=== PATIENT | male | born 1960 | race Caucasian/White ===

== ENCOUNTER 2019-06-22 07:56 | Day surgery (SDC) | payer OTHER ==
[~2019-06-22] VITALS: Ht 177.8 cm; Wt 104.5 kg
[2019-06-22] MEDS ORDERED: fentaNYL/PF 50MCG/1 ML 2ML syringe ONE (08:07)
[2019-06-22] MEDS ORDERED: LOSA50TA64 PO (08:07)
[2019-06-22] MEDS ORDERED: MIDAZolam 5mg/5ml vial ONE (08:07)
[2019-06-22 08:10] VITALS: BP 157/87
[2019-06-22 09:52] VITALS: BP 146/85
[2019-06-22 10:02] VITALS: BP 143/78
[2019-06-22 10:12] VITALS: BP 137/86
== END 2019-06-22 10:35 | disposition home or self-care (01) ==
LOC: GI LAB 07:56
PROVIDERS: ATTEND Internal Medicine Gastroenterology
DX: Z12.11 Encounter for screening for malignant neoplasm of colon (principal); D12.5 Benign neoplasm of sigmoid colon; K63.5 Polyp of colon; K62.1 Rectal polyp; K57.30 Diverticulosis of large intestine without perforation or abscess without bleeding; K64.8 Other hemorrhoids
CPT/HCPCS: 45380; 45385; 99152; 99153; C1773; J2250; J3010; J7040; A4620

== ENCOUNTER 2019-10-15 08:33 | Outpatient (CLI) | payer OTHER ==
[~2019-10-15 08:33] MED LIST: LOSA50TA64 PO
[2019-10-15 09:10] LABS: BASOPHILS # (AUTO) 0.1 X10'3 (0-0.2); BASOPHILS % (AUTO) 1.1 % (0-1); EOSINOPHILS # (AUTO) 0.2 X10'3 (0-0.9); EOSINOPHILS % (AUTO) 3.1 % (0-6); HEMATOCRIT 45.5 % (42.0-52.0); HEMOGLOBIN 15.4 g/dl (14.0-17.9); LYMPHOCYTES # (AUTO) 2.2 X10'3 (1.1-4.8); LYMPHOCYTES % (AUTO) 31.3 % (21-51); MEAN CORPUSCULAR HEMOGLOBIN 30.6 PG (27.0-31.0); MEAN CORPUSCULAR HGB CONC 33.9 g/dL (33.0-36.5); MEAN CORPUSCULAR VOLUME 90.2 FL (78-98); MEAN PLATELET VOLUME 7.8 FL (7.4-10.4); MONOCYTES # (AUTO) 0.8 X10'3 (0-0.9); MONOCYTES % (AUTO) 11.5 % (2-12); NEUTROPHILS # (AUTO) 3.8 X10'3 (1.8-7.7); PLATELET COUNT 276 X10'3 (140-440); RED BLOOD COUNT 5.05 X10'6 (4.70-6.10); RED CELL DISTRIBUTION WIDTH 14.4 % (11.5-14.5); WHITE BLOOD COUNT 7.2 X10'3 (4.5-11.0)
[2019-10-15 09:37] LABS: ALANINE AMINOTRANSFERASE 29 U/L (12-78); ALBUMIN 3.9 G/DL (3.4-5.0); ALBUMIN/GLOBULIN RATIO 1.1 (1.1-1.5); ALKALINE PHOSPHATASE 56 IU/L (46-116); ANION GAP 9 (8-16); ASPARTATE AMINO TRANSFERASE 23 U/L (10-37); BILIRUBIN,TOTAL 0.3 MG/DL (0.1-1.0); BLOOD UREA NITROGEN 15 MG/DL (7-18); CALCIUM 8.7 MG/DL (8.5-10.1); CHLORIDE 106 MMOL/L (99-107); CREATININE 0.75 MG/DL (0.60-1.10); GLUCOSE 97 MG/DL (70-104); POTASSIUM 4.5 MMOL/L (3.5-5.1); SODIUM 139 MMOL/L (135-145); TOTAL CARBON DIOXIDE 23.7 MMOL/L (24-32); TOTAL PROTEIN 7.5 G/DL (6.4-8.2); eGFR > 90 ML/MIN
== END 2019-10-15 23:59 | disposition home or self-care (01) ==
LOC: LAB 08:33
PROVIDERS: ATTEND Family Medicine
DX: Z00.00 Encounter for general adult medical examination without abnormal findings (principal)
CPT/HCPCS: 36415; 80053; 85025

== ENCOUNTER 2019-10-16 16:01 | Outpatient (CLI) | payer OTHER ==
[2019-10-16] MEDS ORDERED: iohexol 300mg/ml 100ml inj. ONE (16:22)
== END 2019-10-16 23:59 | disposition home or self-care (01) ==
LOC: 64 CT 16:01
PROVIDERS: ATTEND Family Medicine
DX: N20.0 Calculus of kidney (principal); K40.90 Unilateral inguinal hernia, without obstruction or gangrene, not specified as recurrent; K57.30 Diverticulosis of large intestine without perforation or abscess without bleeding; N40.0 Benign prostatic hyperplasia without lower urinary tract symptoms; R31.9 Hematuria, unspecified
CPT/HCPCS: 74177; Q9967

== ENCOUNTER 2019-11-10 09:54 | Day surgery (SDC) | payer OTHER ==
[2019-11-09 10:38] LABS: BASOPHILS # (AUTO) 0.1 X10'3 (0-0.2); EOSINOPHILS # (AUTO) 0.1 X10'3 (0-0.9); EOSINOPHILS % (AUTO) 1.1 % (0-6); LYMPHOCYTES # (AUTO) 1.5 X10'3 (1.1-4.8); LYMPHOCYTES % (AUTO) 18.9 % (21-51); MEAN CORPUSCULAR HEMOGLOBIN 30.4 PG (27.0-31.0); MEAN CORPUSCULAR HGB CONC 33.9 g/dL (33.0-36.5); MEAN CORPUSCULAR VOLUME 89.6 FL (78-98); MEAN PLATELET VOLUME 8.1 FL (7.4-10.4); MONOCYTES # (AUTO) 0.8 X10'3 (0-0.9); NEUTROPHILS # (AUTO) 5.7 X10'3 (1.8-7.7); PRE OP HEMATOCRIT 46.8 % (42.0-52.0); PRE OP HEMOGLOBIN 15.9 g/dL (14.0-17.9); PRE OP PLATELET COUNT 247 X10'3 (140-440); RED BLOOD COUNT 5.22 X10'6 (4.70-6.10)
[2019-11-09 11:08] LABS: ALBUMIN 4.2 G/DL (3.4-5.0); ALBUMIN/GLOBULIN RATIO 1.1 (1.1-1.5); ALKALINE PHOSPHATASE 50 IU/L (46-116); BLOOD UREA NITROGEN 11 MG/DL (7-18); BUN/CREATININE RATIO 15.1 (5.4-32.0); CHLORIDE 104 MMOL/L (99-107); CREATININE 0.73 MG/DL (0.60-1.10); PRE OP ALT 25 U/L (30-65); PRE OP ANION GAP 8 (8-16); PRE OP AST 22 U/L (10-37); PRE OP BILIRUB, TOTAL 0.4 MG/DL (0.0-1.0); PRE OP GLUCOSE 111 MG/DL (70-104); PRE OP POTASSIUM 4.4 MMOL/L (3.4-5.1); PRE OP SODIUM 138 MMOL/L (135-145); TOTAL CARBON DIOXIDE 26.5 MMOL/L (24-32); TOTAL PROTEIN 7.9 G/DL (6.4-8.2); eGFR > 90 ML/MIN
[~2019-11-10] VITALS: Ht 177.8 cm; Wt 99.4 kg
[2019-11-10] VITALS (8 sets, daily range): BP systolic 118–177; BP diastolic 72–96
[~2019-11-10 09:54] MED LIST changes: +ceFAZolin/D5W- 1GM premix 50 ML IV ONE; +famotidine 20mg tablet PO ONE; +ringers solution, lacted 1,000 ML IV SCH
[2019-11-10] MEDS ORDERED: iohexol 300 MG/1 ML 50ml polymer ONE (11:46)
[2019-11-10] MEDS ORDERED: fentaNYL /PF 50mcg/ml 5ml ampule ONE (11:59)
[2019-11-10] MEDS ORDERED: midazolam 2 mg/2 ml injection ONE (11:59)
[2019-11-10] MEDS ORDERED: ringers solution, lacted 1,000 ML IV SCH ×2 (12:48)
[2019-11-10] MEDS ORDERED: morphine 4 MG/ML inj SYRINge IV PRN ×2 (12:50)
[2019-11-10] MEDS ORDERED: meperidine/PF 25mg/ml syringe IV PRN ×6 (12:50)
[2019-11-10] MEDS ORDERED: ondansetron/PF 4mg/2ml inj IV PRN ×2 (12:50)
[2019-11-10] MEDS ORDERED: proCHLORperazine 10 MG/2 ml inj IV PRN ×2 (12:50)
[2019-11-10] MEDS ORDERED: morphine 2 MG/ML inj. syringe IV PRN ×2 (12:50)
[2019-11-10] MEDS ORDERED: sugammadex 200mg/2ml injection IV ONE (12:57)
--- NOTE | 2019-11-10 13:01 | NUR ---
Received from OR via , accompanied by Anesthesiologist DR BASS and report given by Anesthesiolgist. AWAKENS TO VOICE. VITALS STABLE. ANTHONY PAIN.
[2019-11-10] MEDS ORDERED: LIDOcaine 2% (20mg/ml) 5ml vial ONE (13:17)
[2019-11-10] MEDS ORDERED: dexamethasone sod phosphate 4mg/ml inj. ONE (13:17)
[2019-11-10] MEDS ORDERED: rocuronium 10mg/ml inj IV ONE (13:17)
[2019-11-10] MEDS ORDERED: glycopyrrolate 0.2mg/ml inj ONE (13:17)
[2019-11-10] MEDS ORDERED: neostigmine methylsulfate 1 MG/ML 10ml vial ONE (13:17)
[2019-11-10] MEDS ORDERED: ePHEDrine 50MG/ML INJ. ONE (13:17)
[2019-11-10] MEDS ORDERED: propofol inj 20 ML IV ONE (13:17)
[2019-11-10] MEDS ORDERED: ondansetron/PF 4mg/2ml inj ONE (13:17)
--- NOTE | 2019-11-10 14:21 | NUR ---
AWAKE AND ORIENTED. VITALS STABLE. ANTHONY PAIN. HOME WITH HIS AT THIS TIME.
[2019-11-12] MEDS ORDERED: FLO0.4C PO (09:54)
[2019-11-12] MEDS ORDERED: CEPH250T PO (10:31)
== END 2019-11-10 14:21 | disposition home or self-care (01) ==
LOC: PAS 09:54
PROVIDERS: ATTEND Urology
DX: C65.2 Malignant neoplasm of left renal pelvis (principal); R31.0 Gross hematuria
CPT/HCPCS: 36415; 52354; 74420; 76000; 80053; 82948; 85025; 93005; C1758; C1769; C9399; J0690; J1100; J2001; J2250; J2405; J2704; J2710; J3010; Q9967; A4618; J3490; J7120

== ENCOUNTER 2019-11-23 07:11 | Emergency (ER) | payer OTHER ==
[~2019-11-23] VITALS: Ht 180.3 cm; Wt 106.4 kg
[~2019-11-23 07:11] MED LIST changes: +CEPH250T PO; +FLO0.4C PO; -ceFAZolin/D5W- 1GM premix 50 ML IV ONE; -famotidine 20mg tablet PO ONE; -ringers solution, lacted 1,000 ML IV SCH
[2019-11-23 07:15] VITALS: BP 124/64
--- NOTE | 2019-11-23 07:55 | NUR ---
PLACED LEG BAG ON HO CATHETER PT IS BEING DISCHARGED HOME TO FOLLOW UP WITH DR ACOSTA OFFICE.
== END 2019-11-23 08:11 | disposition home or self-care (01) ==
LOC: ER 07:12
DX: R33.9 Retention of urine, unspecified (principal); N40.0 Benign prostatic hyperplasia without lower urinary tract symptoms; Z87.440 Personal history of urinary (tract) infections
CPT/HCPCS: 51702; 99284

== ENCOUNTER 2019-12-15 07:58 | Outpatient (CLI) | payer OTHER ==
[2019-12-15] VITALS (9 sets, daily range): BP systolic 114–160; BP diastolic 62–96
[~2019-12-15] VITALS: Ht 180.3 cm; Wt 102.0 kg
[~2019-12-15 07:58] MED LIST changes: -CEPH250T PO; -FLO0.4C PO
[2019-12-15] MEDS ORDERED: regadenoson 0.4mg/5ml syringe IV ONE (08:35)
== END 2019-12-15 23:59 | disposition home or self-care (01) ==
LOC: RAD 07:58
PROVIDERS: ATTEND Internal Medicine Cardiovascular Disease
DX: Z01.810 Encounter for preprocedural cardiovascular examination (principal); I10 Essential (primary) hypertension; R07.9 Chest pain, unspecified
CPT/HCPCS: 78452; 93017; A9500; J2785

== ENCOUNTER 2019-12-30 07:00 | Day surgery (SDC) | payer OTHER ==
[2019-12-29 10:17] LABS: BASOPHILS # (AUTO) 0.1 X10'3 (0-0.2); BASOPHILS % (AUTO) 0.8 % (0-1); EOSINOPHILS # (AUTO) 0.1 X10'3 (0-0.9); EOSINOPHILS % (AUTO) 1.6 % (0-6); HEMATOCRIT 43.1 % (42.0-52.0); HEMOGLOBIN 14.3 g/dl (14.0-17.9); LYMPHOCYTES # (AUTO) 1.8 X10'3 (1.1-4.8); LYMPHOCYTES % (AUTO) 24.4 % (21-51); MEAN CORPUSCULAR HEMOGLOBIN 30.2 PG (27.0-31.0); MEAN CORPUSCULAR HGB CONC 33.1 g/dL (33.0-36.5); MEAN CORPUSCULAR VOLUME 91.2 FL (78-98); MEAN PLATELET VOLUME 7.9 FL (7.4-10.4); MONOCYTES # (AUTO) 0.7 X10'3 (0-0.9); MONOCYTES % (AUTO) 9.7 % (2-12); NEUTROPHILS # (AUTO) 4.8 X10'3 (1.8-7.7); NEUTROPHILS % (AUTO) 63.5 % (42-75); PLATELET COUNT 255 X10'3 (140-440); RED BLOOD COUNT 4.73 X10'6 (4.70-6.10); RED CELL DISTRIBUTION WIDTH 14.5 % (11.5-14.5); WHITE BLOOD COUNT 7.5 X10'3 (4.5-11.0)
[2019-12-29 10:20] LABS: ALBUMIN 3.7 G/DL (3.4-5.0); ANION GAP 8 (8-16); BLOOD UREA NITROGEN 11 MG/DL (7-18); BUN/CREATININE RATIO 13.9 (5.4-32.0); CALCIUM 8.6 MG/DL (8.5-10.1); CHLORIDE 104 MMOL/L (99-107); CREATININE 0.79 MG/DL (0.60-1.10); GLUCOSE 103 MG/DL (70-104); POTASSIUM 4.5 MMOL/L (3.5-5.1); SODIUM 138 MMOL/L (135-145); TOTAL CARBON DIOXIDE 26.4 MMOL/L (24-32); eGFR > 90 ML/MIN
[2019-12-29 10:23] LABS: PARTIAL THROMBOPLASTIN TIME 29 SECONDS (22-32)
[~2019-12-30] VITALS: Ht 180.3 cm; Wt 100.7 kg
[2019-12-30] VITALS (12 sets, daily range): BP systolic 145–174; BP diastolic 77–100
[2019-12-30] MEDS ORDERED: ASCO-139 PO (07:24)
[2019-12-30] MEDS ORDERED: LOSA25TA96 PO (07:24)
[2019-12-30] MEDS ORDERED: MULT-1085 PO (07:24)
[2019-12-30] MEDS ORDERED: FLO0.4C PO (07:24)
[2019-12-30] MEDS ORDERED: normal saline 1,000 ML IV SCH (07:30)
[2019-12-30] MEDS ORDERED: diphenhydrAMINE 25mg capsule PO PRN (07:50)
[2019-12-30] MEDS ORDERED: LORazepam 0.5 MG tablet PO PRN (07:50)
[2019-12-30] MEDS ORDERED: LIDOcaine/PRILOcaine 5gm cream TP ONE (08:15)
[2019-12-30] MEDS ORDERED: nitroGLYCERIN-Tridil 50MG/D5W 250 ML IV ONE (09:35)
[2019-12-30] MEDS ORDERED: verapamil 2.5 mg/ml inj IV ONE (09:35)
[2019-12-30] MEDS ORDERED: fentaNYL/PF 50MCG/1 ML 2ML syringe ONE (09:35)
[2019-12-30] MEDS ORDERED: midazolam 2 mg/2 ml injection ONE (09:35)
[2019-12-30] MEDS ORDERED: LIDOcaine 1% (10mg/ml)w/preservative injection 20ml MDV ONE (09:35)
[2019-12-30] MEDS ORDERED: iohexol 350 MG/ML 50ML vial IV ONE (09:36)
[2019-12-30] MEDS ORDERED: iohexol 350 MG/1 ML 200ml bottle ONE (09:36)
[2019-12-30] MEDS ORDERED: heparin 1,000unit/ml 10ml vial 10 ML ONE (09:36)
--- NOTE | 2019-12-30 09:50 | NUR ---
pt left floor to procedure
== END 2019-12-30 18:00 | disposition home or self-care (01) ==
LOC: U 07:00 → MED 3N 07:00 → U 18:00
PROVIDERS: ATTEND Internal Medicine Cardiovascular Disease
DX: R94.39 Abnormal result of other cardiovascular function study (principal); I25.10 Atherosclerotic heart disease of native coronary artery without angina pectoris; I10 Essential (primary) hypertension; E78.5 Hyperlipidemia, unspecified; E66.9 Obesity, unspecified; Z68.32 Body mass index [BMI] 32.0-32.9, adult; F17.210 Nicotine dependence, cigarettes, uncomplicated; Z79.899 Other long term (current) drug therapy; Z82.49 Family history of ischemic heart disease and other diseases of the circulatory system; Z79.01 Long term (current) use of anticoagulants
CPT/HCPCS: 36415; 80048; 85025; 85610; 85730; 93005; 93458; 99152; 99153; C1769; C1894; J1644; J2001; J2250; J3010; J7030; Q0163; Q9967; A4620; A5120; J3490

== ENCOUNTER 2020-01-25 05:39 | Inpatient (IN) | payer OTHER ==
[2020-01-19 11:54] LABS: BASOPHILS # (AUTO) 0.1 X10'3 (0-0.2); BASOPHILS % (AUTO) 0.8 % (0-1); EOSINOPHILS # (AUTO) 0.1 X10'3 (0-0.9); EOSINOPHILS % (AUTO) 1.1 % (0-6); LYMPHOCYTES % (AUTO) 22.1 % (21-51); MEAN CORPUSCULAR HGB CONC 33.1 g/dL (33.0-36.5); MEAN CORPUSCULAR VOLUME 90.6 FL (78-98); MONOCYTES # (AUTO) 0.9 X10'3 (0-0.9); MONOCYTES % (AUTO) 10.3 % (2-12); NEUTROPHILS # (AUTO) 5.8 X10'3 (1.8-7.7); NEUTROPHILS % (AUTO) 65.7 % (42-75); PRE OP HEMATOCRIT 44.4 % (42.0-52.0); PRE OP HEMOGLOBIN 14.7 g/dL (14.0-17.9); PRE OP PLATELET COUNT 255 X10'3 (140-440); RED CELL DISTRIBUTION WIDTH 14.2 % (11.5-14.5)
[2020-01-19 12:01] LABS: ALBUMIN 4.1 G/DL (3.4-5.0); ALBUMIN/GLOBULIN RATIO 1.1 (1.1-1.5); ALKALINE PHOSPHATASE 56 IU/L (46-116); BLOOD UREA NITROGEN 20 MG/DL (7-18); BUN/CREATININE RATIO 24.1 (5.4-32.0); CHLORIDE 102 MMOL/L (99-107); CREATININE 0.83 MG/DL (0.60-1.10); PRE OP ALT 30 U/L (30-65); PRE OP ANION GAP 11 (8-16); PRE OP AST 25 U/L (10-37); PRE OP BILIRUB, TOTAL 0.5 MG/DL (0.0-1.0); PRE OP GLUCOSE 102 MG/DL (70-104); PRE OP POTASSIUM 4.2 MMOL/L (3.4-5.1); PRE OP SODIUM 137 MMOL/L (135-145); TOTAL CARBON DIOXIDE 24.1 MMOL/L (24-32); TOTAL PROTEIN 7.9 G/DL (6.4-8.2); eGFR > 90 ML/MIN
[~2020-01-25] VITALS: Ht 177.8 cm; Wt 99.9 kg
[2020-01-25] VITALS (23 sets, daily range): BP systolic 94–159; BP diastolic 63–102
[~2020-01-25 05:39] MED LIST changes: +ASCO-139 PO; +ATOR40TA PO; +DOCUMENT DATE & TIME OF BETA-BLOCKER PO ONE; +FLO0.4C PO; +LOSA25TA96 PO; -LOSA50TA64 PO; +METO-384 PO; +MULT-1085 PO; +albuterol 2.5 MG/3 ML nebule NEB ONE; +ceFAZolin 2gm in dextrose, iso 50 ML IV ONE; +famotidine 20mg tablet PO ONE
[2020-01-25] MEDS: ringers solution, lacted 1,000 ML IV SCH ×4 (06:25→23:13)
[2020-01-25] MEDS ORDERED: dexamethasone sod phosphate 10mg/ml inj ONE (07:20)
[2020-01-25] MEDS ORDERED: ondansetron/PF 4mg/2ml inj ONE (07:20)
[2020-01-25] MEDS ORDERED: sevoflurane 250ml liquid IH ONE (07:20)
[2020-01-25] MEDS ORDERED: MIDAZolam 5mg/5ml vial ONE (07:23)
[2020-01-25] MEDS ORDERED: fentaNYL /PF 50mcg/ml 5ml ampule ONE ×2 (07:23→08:28)
[2020-01-25] MEDS ORDERED: propofol inj 20 ML IV ONE (07:24)
[2020-01-25] MEDS ORDERED: LIDOcaine 2% (20mg/ml) 5ml vial ONE (07:25)
[2020-01-25] MEDS ORDERED: rocuronium 10mg/ml inj IV ONE (07:26)
[2020-01-25] MEDS ORDERED: ePHEDrine 50MG/ML INJ. ONE (08:24)
[2020-01-25] MEDS ORDERED: BUPIVAcaine/PF 2.5 mg/ml (0.25%) 30ml vial ONE (08:51)
[2020-01-25] MEDS ORDERED: morphine 4 MG/ML inj SYRINge ONE (12:03)
[2020-01-25] MEDS ORDERED: acetaminophen 1,000mg/100ml IV 100 ML IV ONE (12:12)
[2020-01-25] MEDS ORDERED: neostigmine methylsulfate 1 MG/ML 10ml vial ONE (12:16)
[2020-01-25] MEDS ORDERED: glycopyrrolate 0.2mg/ml inj ONE (12:16)
[2020-01-25] MEDS ORDERED: pancuronium br 1mg/ml inj IV ONE (12:25)
--- NOTE | 2020-01-25 12:35 | NUR ---
Received from OR via , accompanied by Anesthesiologist DR SHIRLEY and report given by Anesthesiolgist. PATIENT WAKING UP, PADMINI PAIN, V/S WNL, SCD ON, 20G PIV TO LUE , ART LINE TO RUE, F/C WITH PINK URINE DR ACOSTA AWARE. MULTIPLE BANDAIDS TO LEFT ABDOMEN AND ISLAND DRESSING WITH CAROLE WELL AND IS CDI.
[2020-01-25] MEDS ORDERED: naloxone 0.4 mg/ml inj IV PRN (13:00)
[2020-01-25] MEDS ORDERED: ondansetron/PF 4mg/2ml inj IV PRN ×3 (13:00→15:05)
[2020-01-25] MEDS ORDERED: CADD PCA waste documentation MC PRN (13:00)
[2020-01-25] MEDS ORDERED: meperidine/PF 25mg/ml syringe ONE (13:18)
[2020-01-25] MEDS ORDERED: ringers solution, lacted 1,000 ML IV SCH ×2 (13:29→15:05)
[2020-01-25] MEDS ORDERED: morphine 4 MG/ML inj SYRINge IV PRN ×2 (13:30→15:05)
[2020-01-25] MEDS ORDERED: ketorolac trometh. 30mg/ml inj. IV ONE (13:30)
[2020-01-25] MEDS ORDERED: meperidine/PF 25mg/ml syringe IV PRN ×4 (13:30→15:05)
[2020-01-25] MEDS ORDERED: morphine 2 MG/ML inj. syringe IV PRN ×2 (13:30→15:05)
[2020-01-25] MEDS: meperidine/PF 25mg/ml syringe IV PRN ×2 (13:40→13:49)
[2020-01-25] MEDS: HYDROmorphone/NS 1 mg/ml CADD 50 ML IV SCH ×6 (14:07→23:00)
--- NOTE | 2020-01-25 14:07 | NUR ---
OIL TREATER STARTED WITH MULTIPLE BOLUS GIVEN FOR CONTINUED C/O OF ABDOMEN PAIN.
--- NOTE | 2020-01-25 14:15 | NUR ---
PATIENT ORIENTED X4, CAMPGROUND CLEANING ATTENDANT ENC FOR PAIN, V/S WNL, SCD ON, 20G PIV TO LUE , ART LINE TO RUE D/C, F/C WITH PINK URINE DR ACOSTA AWARE. MULTIPLE BANDAIDS TO LEFT ABDOMEN AND ISLAND DRESSING WITH CAROLE WELL AND IS CDI. TELE ON PATIENT. TAKEN TO SURGICAL WITH ALL BELONGINGS AND HOOKED UP TO MONITORS IN ROOM AND REPORT GIVEN TO RN WHO HAS TAKEN OVER PATIENT CARE.
--- NOTE | 2020-01-25 14:53 | NUR ---
Patient just arrived to him room from Recovery room. Patient has Dilaudid CADD standard dose setting. Patient educated about the use of BILINGUAL SALES ASSISTANT. Patient has pressure dressing on his right wrist where the right art line was removed by PHARMACIST IN CHARGE OWNER at the Recovery Room. Blood noted at the site, dressing reinforced, pressure applied. Capillary refill good, sensation intact and skin warm to touch. Instructed patient to call me immediately if the site bleed again and oozing.
[2020-01-25] MEDS ORDERED: proCHLORperazine 10 MG/2 ml inj IV PRN (15:05)
--- NOTE | 2020-01-25 18:30 | NUR ---
Dr. Lemon notified about the bloody drainage from the CAROLE drain and that it was draining continuously. I let him know that the CAROLE drain output from my shift was 260ml. Received order for CBC STAT and CBC in AM. Report given to Jinny PENA
[2020-01-25 18:57] LABS: BASOPHILS % (AUTO) 0.1 % (0-1); EOSINOPHILS % (AUTO) 0 % (0-6); HEMATOCRIT 37.2 % (42.0-52.0); HEMOGLOBIN 12.3 g/dl (14.0-17.9); LYMPHOCYTES # (AUTO) 0.9 X10'3 (1.1-4.8); LYMPHOCYTES % (AUTO) 4.9 % (21-51); MEAN CORPUSCULAR HEMOGLOBIN 30.1 PG (27.0-31.0); MEAN CORPUSCULAR HGB CONC 33.2 g/dL (33.0-36.5); MEAN CORPUSCULAR VOLUME 90.8 FL (78-98); MEAN PLATELET VOLUME 7.9 FL (7.4-10.4); MONOCYTES # (AUTO) 1.3 X10'3 (0-0.9); MONOCYTES % (AUTO) 7.4 % (2-12); NEUTROPHILS # (AUTO) 15.5 X10'3 (1.8-7.7); NEUTROPHILS % (AUTO) 87.6 % (42-75); PLATELET COUNT 256 X10'3 (140-440); RED BLOOD COUNT 4.09 X10'6 (4.70-6.10); RED CELL DISTRIBUTION WIDTH 14.1 % (11.5-14.5); WHITE BLOOD COUNT 17.7 X10'3 (4.5-11.0)
[2020-01-25] MEDS ORDERED: normal saline 500ml IV soln 500 ML IV STA ×2 (19:20→23:01)
--- NOTE | 2020-01-25 19:20 | NUR ---
DR ACOSTA NOTIFIED: HH 12.3/37.2, TOTAL OF 210 ML OF DARK RED BLOOD DRAINED FROM CAROLE DRAIN SINCE 1829.. BP 108/67, HR 92, O2 SATS 96% 1L NC. ORDERS OBTAINED TO START A 500 ML NS BOLUS AND MONITOR PATIENT.
[2020-01-25] MEDS: metoprolol succinate 25mg (24-HOUR) SR. Tablet PO SCH (21:00)
[2020-01-25] MEDS: docusate sod 100mg capsule PO SCH (21:25)
[2020-01-25] MEDS: atorvastatin 20mg tablet PO SCH (21:26)
[2020-01-26] VITALS (25 sets, daily range): BP systolic 87–146; BP diastolic 49–85
--- NOTE | 2020-01-26 00:40 | NUR ---
DR ACOSTA NOTIFIED: CAROLE DRAINED 340 ML OF BLOODY DRAINAGE SINCE 0000. BP 87/60, HR 111, OXYGEN SATURATIONS 95% 2L NC. TOTAL URINE OUTPUT FOR NOC SHIFT 160 ML. ORDERS OBTAINED FOR 500 ML BOLUS AND ADDITIONAL LABS. SEE ORDERS FOR DETAILS.
[2020-01-26] MEDS ORDERED: normal saline 500ml IV soln 500 ML IV ONE (00:50)
[2020-01-26] MEDS: HYDROmorphone/NS 1 mg/ml CADD 50 ML IV SCH ×9 (01:00→23:00)
--- NOTE | 2020-01-26 01:00 | NUR ---
DR ACOSTA HERE TO EVALUATE PATIENT.
[2020-01-26 01:19] LABS: BASOPHILS # (AUTO) 0.1 X10'3 (0-0.2); BASOPHILS % (AUTO) 0.3 % (0-1); EOSINOPHILS % (AUTO) 0 % (0-6); HEMATOCRIT 28.4 % (42.0-52.0); HEMOGLOBIN 9.4 g/dl (14.0-17.9); LYMPHOCYTES # (AUTO) 1.5 X10'3 (1.1-4.8); LYMPHOCYTES % (AUTO) 10.1 % (21-51); MEAN CORPUSCULAR HEMOGLOBIN 30.5 PG (27.0-31.0); MEAN CORPUSCULAR HGB CONC 33.1 g/dL (33.0-36.5); MEAN CORPUSCULAR VOLUME 92.3 FL (78-98); MEAN PLATELET VOLUME 7.9 FL (7.4-10.4); MONOCYTES # (AUTO) 1.3 X10'3 (0-0.9); MONOCYTES % (AUTO) 9.1 % (2-12); NEUTROPHILS % (AUTO) 80.5 % (42-75); PLATELET COUNT 211 X10'3 (140-440); RED BLOOD COUNT 3.08 X10'6 (4.70-6.10); RED CELL DISTRIBUTION WIDTH 14.2 % (11.5-14.5); WHITE BLOOD COUNT 14.9 X10'3 (4.5-11.0)
[2020-01-26 01:33] LABS: ALANINE AMINOTRANSFERASE 22 U/L (12-78); ALBUMIN 2.8 G/DL (3.4-5.0); ALBUMIN/GLOBULIN RATIO 1.1 (1.1-1.5); ALKALINE PHOSPHATASE 38 IU/L (46-116); ANION GAP 9 (8-16); ASPARTATE AMINO TRANSFERASE 25 U/L (10-37); BILIRUBIN,TOTAL 0.5 MG/DL (0.1-1.0); BLOOD UREA NITROGEN 19 MG/DL (7-18); CHLORIDE 103 MMOL/L (99-107); CREATININE 1.73 MG/DL (0.60-1.10); GLUCOSE 176 MG/DL (70-104); POTASSIUM 4.5 MMOL/L (3.5-5.1); SODIUM 133 MMOL/L (135-145); TOTAL CARBON DIOXIDE 21.1 MMOL/L (24-32); TOTAL PROTEIN 5.4 G/DL (6.4-8.2); eGFR 40 ML/MIN
[2020-01-26] MEDS ORDERED: LIDOcaine 1% (10mg/ml) 2ml vial ONE (02:09)
--- NOTE | 2020-01-26 02:10 | NUR ---
BLOOD TRANSFUSION RUNNING INITIATED. PT DOWN TO OR.
[2020-01-26] MEDS ORDERED: midazolam 2 mg/2 ml injection ONE (02:13)
[2020-01-26] MEDS ORDERED: sevoflurane 250ml liquid IH ONE (02:14)
[2020-01-26] MEDS ORDERED: etomidate 2mg/ml inj. ONE (02:14)
[2020-01-26] MEDS ORDERED: dexamethasone sod phosphate 10mg/ml inj ONE (02:14)
[2020-01-26] MEDS ORDERED: rocuronium 10mg/ml inj IV ONE (02:14)
[2020-01-26] MEDS ORDERED: propofol 10mg/ml 20ml vial IV ONE (02:14)
[2020-01-26] MEDS ORDERED: fentaNYL /PF 50mcg/ml 5ml ampule ONE (02:15)
[2020-01-26] MEDS ORDERED: insulin regular, human U-100 3ml vial - multi-dose ONE (03:15)
[2020-01-26] MEDS ORDERED: midazolam 100mg in NS 100ml 100 ML IV PRN (04:18)
[2020-01-26] MEDS ORDERED: FENTANYL-0.9 % NACL/PF 100 ML IV PRN (04:18)
[2020-01-26] MEDS ORDERED: midazolam 2 mg/2 ml injection IV ONE (04:20)
[2020-01-26] MEDS ORDERED: fentaNYL/PF 50MCG/1 ML 2ML syringe IV PRN (04:20)
--- NOTE | 2020-01-26 05:00 | NUR ---
Patient received from OR via bed to ICU room 2042. Sedated and intubated. Bedside report received and care assumed.
[2020-01-26] MEDS ORDERED: MIDAZolam 5mg/ml 2ml vial IV ONE (05:10)
[2020-01-26] MEDS ORDERED: albuterol 2.5 MG/3 ML nebule NEB PRN (05:35)
[2020-01-26 05:46] LABS: ABG BASE EXCESS -6.9 mmol/L (-2.0-3.0); ABG HCO3 19.2 mmol/L (22.0-26.0); ABG OXYGEN SATURATION 98.8 % (95-98); ABG PCO2 (T) 38.4 mmHg (35.0-45.0); ABG PO2 (T) 169.7 mmHg (83-108); FMetHb 0.3 % (0.3-1.12); FO2Hb 98.5 % (94-100); PATIENT TEMPERATURE 35.7; PEEP 5 cm H2O; RESPIRATORY RATE 12 b/min; TIDAL VOLUME 650 mL; TOTAL HEMOGLOBIN 11.7 G/dl (14.0-17.9)
--- NOTE | 2020-01-26 06:00 | NUR ---
Patient in room ICU 2042. I have received report from Lis and had the opportunity to ask questions and assume patient care.
[2020-01-26 06:17] LABS: BASOPHILS % (AUTO) 0.2 % (0-1); EOSINOPHILS % (AUTO) 0.1 % (0-6); HEMATOCRIT 32.3 % (42.0-52.0); HEMOGLOBIN 10.9 g/dl (14.0-17.9); LYMPHOCYTES % (AUTO) 9.9 % (21-51); MEAN CORPUSCULAR HEMOGLOBIN 30.2 PG (27.0-31.0); MEAN CORPUSCULAR HGB CONC 33.7 g/dL (33.0-36.5); MEAN CORPUSCULAR VOLUME 89.7 FL (78-98); MEAN PLATELET VOLUME 7.9 FL (7.4-10.4); MONOCYTES % (AUTO) 9.2 % (2-12); NEUTROPHILS # (AUTO) 8.5 X10'3 (1.8-7.7); NEUTROPHILS % (AUTO) 80.6 % (42-75); PLATELET COUNT 164 X10'3 (140-440); RED CELL DISTRIBUTION WIDTH 14.5 % (11.5-14.5); WHITE BLOOD COUNT 10.5 X10'3 (4.5-11.0)
[2020-01-26 06:29] LABS: PARTIAL THROMBOPLASTIN TIME 27 SECONDS (22-32)
[2020-01-26 06:32] LABS: ALANINE AMINOTRANSFERASE 22 U/L (12-78); ALBUMIN 2.6 G/DL (3.4-5.0); ALKALINE PHOSPHATASE 39 IU/L (46-116); ANION GAP 9 (8-16); ASPARTATE AMINO TRANSFERASE 31 U/L (10-37); BILIRUBIN,TOTAL 0.6 MG/DL (0.1-1.0); BLOOD UREA NITROGEN 18 MG/DL (7-18); BUN/CREATININE RATIO 12.2 (5.4-32.0); CALCIUM 6.4 MG/DL (8.5-10.1); CHLORIDE 105 MMOL/L (99-107); CREATININE 1.48 MG/DL (0.60-1.10); GLUCOSE 109 MG/DL (70-104); MAGNESIUM 1.6 MG/DL (1.5-2.4); PHOSPHORUS 4.4 MG/DL (2.3-4.5); POTASSIUM 4.8 MMOL/L (3.5-5.1); SODIUM 135 MMOL/L (135-145); TOTAL CARBON DIOXIDE 20.9 MMOL/L (24-32); TOTAL PROTEIN 5.1 G/DL (6.4-8.2); eGFR 48 ML/MIN
[2020-01-26] MEDS: ringers solution, lacted 1,000 ML IV SCH ×3 (06:59→22:59)
[2020-01-26] MEDS: docusate sod 100mg capsule PO SCH ×2 (08:00→20:12)
[2020-01-26] MEDS: losartan 25mg tablet PO SCH (08:00)
[2020-01-26] MEDS ORDERED: losartan 25mg tablet PO SCH (08:00)
[2020-01-26] MEDS: multivitamins, therapeutics tablet PO SCH (08:00)
[2020-01-26] MEDS: tamsulosin 0.4mg capsule PO SCH (08:01)
[2020-01-26] MEDS: ascorbic acid 500mg tablet PO SCH (08:01)
[2020-01-26] MEDS: pantoprazole 40 MG vial IV SCH (08:01)
[2020-01-26] MEDS: ipratropium/albuterol 3ml nebule NEB SCH ×5 (09:20→23:02)
[2020-01-26] MEDS ORDERED: thiamine inj. 100 MG in normal saline 100ml IV soln 100 ML IV ONE (13:15)
[2020-01-26] MEDS: folic acid inj. 2 MG, thiamine inj. 100 MG, MVI, adult No.4 with vit. K 10 ML in dextro... IV SCH ×4 (14:14)
[2020-01-26 15:05] LABS: HEMATOCRIT 29.8 % (42.0-52.0); HEMOGLOBIN 10.2 g/dl (14.0-17.9); MEAN CORPUSCULAR HEMOGLOBIN 30.6 PG (27.0-31.0); MEAN CORPUSCULAR HGB CONC 34.4 g/dL (33.0-36.5); MEAN PLATELET VOLUME 7.7 FL (7.4-10.4); PLATELET COUNT 145 X10'3 (140-440); RED BLOOD COUNT 3.35 X10'6 (4.70-6.10); RED CELL DISTRIBUTION WIDTH 15.2 % (11.5-14.5); WHITE BLOOD COUNT 9.3 X10'3 (4.5-11.0)
[2020-01-26] MEDS: atorvastatin 20mg tablet PO SCH (20:12)
[2020-01-26] MEDS: metoprolol succinate 25mg (24-HOUR) SR. Tablet PO SCH (20:13)
[2020-01-27] VITALS (24 sets, daily range): BP systolic 111–141; BP diastolic 54–82
[2020-01-27] MEDS: HYDROmorphone/NS 1 mg/ml CADD 50 ML IV SCH ×5 (01:00→09:00)
[2020-01-27 02:43] LABS: BASOPHILS % (AUTO) 0.2 % (0-1); EOSINOPHILS % (AUTO) 0.1 % (0-6); HEMATOCRIT 29.6 % (42.0-52.0); HEMOGLOBIN 9.8 g/dl (14.0-17.9); LYMPHOCYTES # (AUTO) 1.2 X10'3 (1.1-4.8); LYMPHOCYTES % (AUTO) 8.4 % (21-51); MEAN CORPUSCULAR HEMOGLOBIN 29.5 PG (27.0-31.0); MEAN CORPUSCULAR HGB CONC 33.2 g/dL (33.0-36.5); MEAN CORPUSCULAR VOLUME 88.9 FL (78-98); MEAN PLATELET VOLUME 8.2 FL (7.4-10.4); MONOCYTES # (AUTO) 1.1 X10'3 (0-0.9); MONOCYTES % (AUTO) 7.9 % (2-12); NEUTROPHILS % (AUTO) 83.4 % (42-75); PLATELET COUNT 154 X10'3 (140-440); RED BLOOD COUNT 3.33 X10'6 (4.70-6.10); WHITE BLOOD COUNT 14.4 X10'3 (4.5-11.0)
[2020-01-27 02:54] LABS: PARTIAL THROMBOPLASTIN TIME 30 SECONDS (22-32)
[2020-01-27 02:59] LABS: ALANINE AMINOTRANSFERASE 26 U/L (12-78); ALBUMIN 2.5 G/DL (3.4-5.0); ALBUMIN/GLOBULIN RATIO 0.9 (1.1-1.5); ALKALINE PHOSPHATASE 40 IU/L (46-116); ANION GAP 5 (8-16); ASPARTATE AMINO TRANSFERASE 75 U/L (10-37); BILIRUBIN,TOTAL 0.5 MG/DL (0.1-1.0); BLOOD UREA NITROGEN 13 MG/DL (7-18); BUN/CREATININE RATIO 10.4 (5.4-32.0); CALCIUM 6.9 MG/DL (8.5-10.1); CHLORIDE 104 MMOL/L (99-107); CREATININE 1.25 MG/DL (0.60-1.10); GLUCOSE 120 MG/DL (70-104); MAGNESIUM 1.4 MG/DL (1.5-2.4); PHOSPHORUS 2.1 MG/DL (2.3-4.5); POTASSIUM 4.1 MMOL/L (3.5-5.1); SODIUM 134 MMOL/L (135-145); TOTAL CARBON DIOXIDE 24.8 MMOL/L (24-32); TOTAL PROTEIN 5.4 G/DL (6.4-8.2); eGFR 59 ML/MIN
[2020-01-27] MEDS: ipratropium/albuterol 3ml nebule NEB SCH ×6 (03:05→23:44)
--- NOTE | 2020-01-27 06:15 | NUR ---
Patient in room CICU 2009. I have received report from RN and had the opportunity to ask questions and assume patient care.
[2020-01-27] MEDS ORDERED: mineral oil/petrolatum ophthal oint EACHEYE SCH (08:00)
[2020-01-27] MEDS: pantoprazole 40 MG vial IV SCH (08:38)
[2020-01-27] MEDS: tamsulosin 0.4mg capsule PO SCH (08:38)
[2020-01-27] MEDS: docusate sod 100mg capsule PO SCH ×2 (08:38→19:15)
[2020-01-27] MEDS: multivitamins, therapeutics tablet PO SCH (08:38)
[2020-01-27] MEDS: losartan 25mg tablet PO SCH (08:38)
[2020-01-27] MEDS: ascorbic acid 500mg tablet PO SCH (08:39)
[2020-01-27] MEDS: folic acid inj. 2 MG, thiamine inj. 100 MG, MVI, adult No.4 with vit. K 10 ML in dextro... IV SCH ×4 (09:47)
[2020-01-27] MEDS: folic acid/vitamin B complex w/vitamin C 0.8mg tablet PO SCH (12:28)
--- NOTE | 2020-01-27 14:45 | NUR ---
MD present, orders to dc cadd received, po norco ordered, wasted 26.4ml dilauded. unable to chart 2 hour cadd doses in emar. 1300 residual volume 27.2, 102/167, 21.30mg, 1500 residual volume 26.6, 105/170, 21.90mg
[2020-01-27] MEDS ORDERED: HYDROcodone/acetaminophen 10/325mg tab PO PRN (15:15)
[2020-01-27] MEDS: HYDROcodone/acetaminophen 10/325mg tab PO PRN ×2 (16:12→21:05)
--- NOTE | 2020-01-27 17:18 | NUR ---
PT febrile, 38.4C, placed fan on pt, md notified, orders received
[2020-01-27] MEDS: piperacillin/tazo 3.375gm/50ml 50 ML IV SCH (18:15)
--- NOTE | 2020-01-27 18:26 | NUR ---
Problems reprioritized. Patient report given, questions answered & plan of care reviewed with log hauler RN.
[2020-01-27] MEDS: thiamine 100mg tablet PO SCH (19:15)
[2020-01-27] MEDS: atorvastatin 20mg tablet PO SCH (19:15)
[2020-01-27] MEDS: metoprolol succinate 25mg (24-HOUR) SR. Tablet PO SCH (19:15)
[2020-01-27] MEDS: VANCOmycin 1250MG/NS 250ml Bag 250 ML IV SCH (19:16)
[2020-01-27] MEDS ORDERED: furosemide 20 MG/2 ML vial IV ONE (21:30)
[2020-01-28] VITALS (16 sets, daily range): BP systolic 112–157; BP diastolic 51–78
[2020-01-28] MEDS: piperacillin/tazo 3.375gm/50ml 50 ML IV SCH ×4 (01:27→20:09)
[2020-01-28] MEDS: HYDROcodone/acetaminophen 10/325mg tab PO PRN ×4 (01:27→15:56)
[2020-01-28 02:20] LABS: BASOPHILS % (AUTO) 0.1 % (0-1); EOSINOPHILS % (AUTO) 0.3 % (0-6); HEMATOCRIT 25.8 % (42.0-52.0); HEMOGLOBIN 8.6 g/dl (14.0-17.9); LYMPHOCYTES # (AUTO) 1.2 X10'3 (1.1-4.8); LYMPHOCYTES % (AUTO) 9.4 % (21-51); MEAN CORPUSCULAR HEMOGLOBIN 29.6 PG (27.0-31.0); MEAN CORPUSCULAR HGB CONC 33.3 g/dL (33.0-36.5); MEAN CORPUSCULAR VOLUME 88.9 FL (78-98); MEAN PLATELET VOLUME 8.1 FL (7.4-10.4); MONOCYTES % (AUTO) 7.6 % (2-12); NEUTROPHILS # (AUTO) 10.3 X10'3 (1.8-7.7); NEUTROPHILS % (AUTO) 82.6 % (42-75); PLATELET COUNT 150 X10'3 (140-440); RED CELL DISTRIBUTION WIDTH 14.5 % (11.5-14.5); WHITE BLOOD COUNT 12.5 X10'3 (4.5-11.0)
[2020-01-28 02:38] LABS: ALANINE AMINOTRANSFERASE 29 U/L (12-78); ALBUMIN 2.3 G/DL (3.4-5.0); ALBUMIN/GLOBULIN RATIO 0.7 (1.1-1.5); ALKALINE PHOSPHATASE 50 IU/L (46-116); ANION GAP 7 (8-16); ASPARTATE AMINO TRANSFERASE 86 U/L (10-37); BILIRUBIN,TOTAL 0.5 MG/DL (0.1-1.0); BLOOD UREA NITROGEN 9 MG/DL (7-18); BUN/CREATININE RATIO 7.3 (5.4-32.0); CALCIUM 7.5 MG/DL (8.5-10.1); CHLORIDE 107 MMOL/L (99-107); CREATININE 1.24 MG/DL (0.60-1.10); GLUCOSE 119 MG/DL (70-104); MAGNESIUM 1.8 MG/DL (1.5-2.4); PHOSPHORUS 1.8 MG/DL (2.3-4.5); POTASSIUM 3.4 MMOL/L (3.5-5.1); SODIUM 138 MMOL/L (135-145); TOTAL CARBON DIOXIDE 24.4 MMOL/L (24-32); TOTAL PROTEIN 5.5 G/DL (6.4-8.2); eGFR 59 ML/MIN
[2020-01-28 02:43] LABS: PARTIAL THROMBOPLASTIN TIME 32 SECONDS (22-32)
[2020-01-28] MEDS: ipratropium/albuterol 3ml nebule NEB SCH ×6 (03:44→23:40)
[2020-01-28] MEDS ORDERED: potassium Cl 20 mEq SR tablet PO PRN (04:40)
[2020-01-28] MEDS: VANCOmycin 1250MG/NS 250ml Bag 250 ML IV SCH ×2 (05:09→17:54)
[2020-01-28] MEDS: potassium Cl 20 mEq SR tablet PO PRN ×3 (05:14→15:56)
[2020-01-28] MEDS: thiamine 100mg tablet PO SCH ×2 (07:49→20:08)
[2020-01-28] MEDS: ascorbic acid 500mg tablet PO SCH (07:49)
[2020-01-28] MEDS: losartan 25mg tablet PO SCH (07:49)
[2020-01-28] MEDS: docusate sod 100mg capsule PO SCH ×2 (07:49→20:09)
[2020-01-28] MEDS: pantoprazole 40mg Tablet.DR PO SCH (07:49)
[2020-01-28] MEDS: tamsulosin 0.4mg capsule PO SCH (07:49)
[2020-01-28] MEDS: multivitamins, therapeutics tablet PO SCH (07:49)
[2020-01-28] MEDS: folic acid/vitamin B complex w/vitamin C 0.8mg tablet PO SCH (07:49)
[2020-01-28] MEDS: K and/or MAG REPLACEMENT MC SCH (08:00)
[2020-01-28 10:58] LABS: CLARITY,URINE CLOUDY (Clear); COLOR,URINE YELLOW (Yellow); GLUCOSE, URINE NEGATIVE (Neg); KETONES,URINE NEGATIVE (Neg); LEUKOCYTE ESTERASE ,URINE MODERATE (Neg); NITRITES, URINE NEGATIVE (Neg); OCCULT BLOOD,URINE LARGE (Neg); PH,URINE 6.5 (4.8-8.0); PROTEIN,URINE 100 mg/dl (Neg); UROBILINOGEN,URINE 0.2 E.U/dL (0.2-1.0)
[2020-01-28 11:07] LABS: UA COLLECTION TYPE NON-SPECIFIED
[2020-01-28 11:08] LABS: BACTERIA,URINE 2+ /HPF (Neg); RBC,URINE TNTC /HPF (0-2); WBC,URINE TNTC /HPF (0-4)
[2020-01-28 11:10] LABS: SQUAMOUS EPITHELIAL CELL,UR FEW /LPF (FEW); TRANSITIONAL EPI CELLS,URINE FEW /HPF
--- NOTE | 2020-01-28 13:52 | NUR ---
Gave report to graphic design assistantJanneth. Pt transferred via wheelchair to surgical unit with all belongings. Pt alert, oriented, and stable for transfer.
--- NOTE | 2020-01-28 14:14 | NUR ---
Patient in room [facility] 345. I have received report from BECKY Cutler and had the opportunity to ask questions and assume patient care. Pt A&O x4, denies any pain or discomfort.
[2020-01-28] MEDS: metoprolol succinate 25mg (24-HOUR) SR. Tablet PO SCH (20:08)
[2020-01-28] MEDS: lactobacillus rhamnosus 10,000 MMU CELLS/CAPSULE PO SCH (20:09)
[2020-01-28] MEDS: atorvastatin 20mg tablet PO SCH (20:09)
[2020-01-29] VITALS: BP 147/70
[2020-01-29] MEDS: piperacillin/tazo 3.375gm/50ml 50 ML IV SCH ×4 (01:33→23:53)
[2020-01-29] MEDS: HYDROcodone/acetaminophen 10/325mg tab PO PRN ×4 (01:34→21:16)
[2020-01-29] MEDS: ipratropium/albuterol 3ml nebule NEB SCH ×6 (03:44→23:34)
[2020-01-29] MEDS ORDERED: VANCOMYCIN LEVEL IV ONE (05:30)
[2020-01-29] MEDS: VANCOmycin 1250MG/NS 250ml Bag 250 ML IV SCH (05:39)
[2020-01-29 05:45] LABS: BASOPHILS % (AUTO) 0.5 % (0-1); EOSINOPHILS # (AUTO) 0.2 X10'3 (0-0.9); EOSINOPHILS % (AUTO) 1.9 % (0-6); HEMATOCRIT 25.4 % (42.0-52.0); HEMOGLOBIN 8.6 g/dl (14.0-17.9); LYMPHOCYTES # (AUTO) 1.1 X10'3 (1.1-4.8); LYMPHOCYTES % (AUTO) 10.8 % (21-51); MEAN CORPUSCULAR HEMOGLOBIN 30.5 PG (27.0-31.0); MEAN CORPUSCULAR VOLUME 89.8 FL (78-98); MEAN PLATELET VOLUME 7.7 FL (7.4-10.4); MONOCYTES # (AUTO) 0.9 X10'3 (0-0.9); MONOCYTES % (AUTO) 8.5 % (2-12); NEUTROPHILS # (AUTO) 8.1 X10'3 (1.8-7.7); NEUTROPHILS % (AUTO) 78.3 % (42-75); PLATELET COUNT 185 X10'3 (140-440); RED BLOOD COUNT 2.83 X10'6 (4.70-6.10); RED CELL DISTRIBUTION WIDTH 14.7 % (11.5-14.5); WHITE BLOOD COUNT 10.3 X10'3 (4.5-11.0)
[2020-01-29 05:50] LABS: PARTIAL THROMBOPLASTIN TIME 29 SECONDS (22-32)
[2020-01-29 05:53] LABS: ALANINE AMINOTRANSFERASE 29 U/L (12-78); ALBUMIN 2.2 G/DL (3.4-5.0); ALBUMIN/GLOBULIN RATIO 0.6 (1.1-1.5); ALKALINE PHOSPHATASE 52 IU/L (46-116); ANION GAP 6 (8-16); ASPARTATE AMINO TRANSFERASE 71 U/L (10-37); BILIRUBIN,TOTAL 0.7 MG/DL (0.1-1.0); BLOOD UREA NITROGEN 10 MG/DL (7-18); BUN/CREATININE RATIO 6.9 (5.4-32.0); CALCIUM 7.8 MG/DL (8.5-10.1); CHLORIDE 107 MMOL/L (99-107); CREATININE 1.45 MG/DL (0.60-1.10); GLUCOSE 114 MG/DL (70-104); POTASSIUM 3.9 MMOL/L (3.5-5.1); SODIUM 138 MMOL/L (135-145); TOTAL CARBON DIOXIDE 25.1 MMOL/L (24-32); TOTAL PROTEIN 5.7 G/DL (6.4-8.2); eGFR 49 ML/MIN
[2020-01-29 05:54] LABS: MAGNESIUM 1.9 MG/DL (1.5-2.4); PHOSPHORUS 1.7 MG/DL (2.3-4.5); VANCOMYCIN,TROUGH 14.8 UG/ML (6.0-14.0)
--- NOTE | 2020-01-29 06:29 | NUR ---
Patient in room [facility] 345. I have received report from BECKY Joyner and had the opportunity to ask questions and assume patient care.
[2020-01-29] MEDS: pantoprazole 40mg Tablet.DR PO SCH (07:06)
[2020-01-29] MEDS: thiamine 100mg tablet PO SCH ×2 (07:06→21:00)
[2020-01-29] MEDS: docusate sod 100mg capsule PO SCH ×2 (07:06→20:59)
[2020-01-29] MEDS: lactobacillus rhamnosus 10,000 MMU CELLS/CAPSULE PO SCH ×2 (07:06→20:59)
[2020-01-29] MEDS: tamsulosin 0.4mg capsule PO SCH (07:06)
[2020-01-29] MEDS: multivitamins, therapeutics tablet PO SCH (07:07)
[2020-01-29] MEDS: ascorbic acid 500mg tablet PO SCH (07:07)
[2020-01-29] MEDS: losartan 25mg tablet PO SCH (07:07)
[2020-01-29 08:00] VITALS: BP 156/85
[2020-01-29] MEDS: K and/or MAG REPLACEMENT MC SCH (08:00)
[2020-01-29] MEDS: folic acid/vitamin B complex w/vitamin C 0.8mg tablet PO SCH (09:36)
[2020-01-29 12:00] VITALS: BP 134/92
--- NOTE | 2020-01-29 12:25 | NUR ---
Dr Lemon in to see pt. CAROLE and wound dressing removed. Incision dry and clean open to air. Pt tolerated procedure well.
--- NOTE | 2020-01-29 17:05 | NUR ---
Received call from lab this morning stating pt LRCP has . Not need to renew orders due to patient's improvement per Dr Lemon.
--- NOTE | 2020-01-29 18:54 | NUR ---
Problems reprioritized. Patient report given, questions answered & plan of care reviewed with BECKY Powell.
[2020-01-29 20:00] VITALS: BP 145/69
[2020-01-29] MEDS: VANCOMYCIN 1,500MG inj. 1,500 MG in normal saline 500ml IV soln 500 ML IV SCH (20:58)
[2020-01-29] MEDS: metoprolol succinate 25mg (24-HOUR) SR. Tablet PO SCH (21:01)
[2020-01-29] MEDS: atorvastatin 20mg tablet PO SCH (21:01)
[2020-01-30] VITALS: BP 147/84
[2020-01-30] MEDS: piperacillin/tazo 3.375gm/50ml 50 ML IV SCH ×3 (02:05→14:00)
[2020-01-30] MEDS: ipratropium/albuterol 3ml nebule NEB SCH ×3 (03:49→11:12)
[2020-01-30 06:19] LABS: BASOPHILS % (AUTO) 0.7 % (0-1); EOSINOPHILS # (AUTO) 0.3 X10'3 (0-0.9); EOSINOPHILS % (AUTO) 5.1 % (0-6); HEMATOCRIT 25.8 % (42.0-52.0); HEMOGLOBIN 8.5 g/dl (14.0-17.9); LYMPHOCYTES % (AUTO) 16.3 % (21-51); MEAN CORPUSCULAR HEMOGLOBIN 29.7 PG (27.0-31.0); MEAN CORPUSCULAR HGB CONC 32.9 g/dL (33.0-36.5); MEAN CORPUSCULAR VOLUME 90.1 FL (78-98); MEAN PLATELET VOLUME 7.7 FL (7.4-10.4); MONOCYTES # (AUTO) 0.8 X10'3 (0-0.9); MONOCYTES % (AUTO) 11.8 % (2-12); NEUTROPHILS # (AUTO) 4.3 X10'3 (1.8-7.7); NEUTROPHILS % (AUTO) 66.1 % (42-75); PLATELET COUNT 242 X10'3 (140-440); RED BLOOD COUNT 2.86 X10'6 (4.70-6.10); RED CELL DISTRIBUTION WIDTH 14.8 % (11.5-14.5); WHITE BLOOD COUNT 6.4 X10'3 (4.5-11.0)
[2020-01-30 06:29] LABS: PARTIAL THROMBOPLASTIN TIME 27 SECONDS (22-32)
[2020-01-30 06:33] LABS: ALANINE AMINOTRANSFERASE 41 U/L (12-78); ALBUMIN 2.3 G/DL (3.4-5.0); ALBUMIN/GLOBULIN RATIO 0.6 (1.1-1.5); ALKALINE PHOSPHATASE 56 IU/L (46-116); ANION GAP 8 (8-16); ASPARTATE AMINO TRANSFERASE 51 U/L (10-37); BILIRUBIN,TOTAL 0.6 MG/DL (0.1-1.0); BLOOD UREA NITROGEN 8 MG/DL (7-18); BUN/CREATININE RATIO 5.9 (5.4-32.0); CALCIUM 8.1 MG/DL (8.5-10.1); CHLORIDE 108 MMOL/L (99-107); CREATININE 1.36 MG/DL (0.60-1.10); GLUCOSE 97 MG/DL (70-104); MAGNESIUM 2.1 MG/DL (1.5-2.4); PHOSPHORUS 2.8 MG/DL (2.3-4.5); POTASSIUM 3.8 MMOL/L (3.5-5.1); SODIUM 142 MMOL/L (135-145); TOTAL CARBON DIOXIDE 26.5 MMOL/L (24-32); TOTAL PROTEIN 5.9 G/DL (6.4-8.2); eGFR 53 ML/MIN
--- NOTE | 2020-01-30 06:40 | NUR ---
Patient in room ARELIS 353. I have received report from BECKY Powell and had the opportunity to ask questions and assume patient care.
--- NOTE | 2020-01-30 06:43 | NUR ---
Problems reprioritized. Patient report given, questions answered & plan of care reviewed with Wendy PENA. Addendum: 01/30/20 at 0644 by Sherry Jacob RN Amended: Links added.
[2020-01-30 07:00] VITALS: BP 176/90
[2020-01-30] MEDS: K and/or MAG REPLACEMENT MC SCH (08:00)
[2020-01-30] MEDS: lactobacillus rhamnosus 10,000 MMU CELLS/CAPSULE PO SCH (08:28)
[2020-01-30] MEDS: folic acid/vitamin B complex w/vitamin C 0.8mg tablet PO SCH (08:28)
[2020-01-30] MEDS: thiamine 100mg tablet PO SCH (08:28)
[2020-01-30] MEDS: docusate sod 100mg capsule PO SCH (08:28)
[2020-01-30] MEDS: ascorbic acid 500mg tablet PO SCH (08:28)
[2020-01-30] MEDS: tamsulosin 0.4mg capsule PO SCH (08:28)
[2020-01-30] MEDS: pantoprazole 40mg Tablet.DR PO SCH (08:28)
[2020-01-30] MEDS: losartan 25mg tablet PO SCH (08:28)
[2020-01-30] MEDS: VANCOMYCIN 1,500MG inj. 1,500 MG in normal saline 500ml IV soln 500 ML IV SCH (08:28)
[2020-01-30] MEDS: multivitamins, therapeutics tablet PO SCH (08:28)
[2020-01-30 11:00] VITALS: BP_SYST 131; BP_SYST 152; BP_DIAS 75; BP_DIAS 83
--- NOTE | 2020-01-30 15:27 | NUR ---
Pt provided with leg bag and [place] care instructions.
[2020-01-31] MEDS ORDERED: VANCOMYCIN LEVEL IV ONE (07:30)
== END 2020-01-30 14:55 | disposition home or self-care (01) | DRG 656 ==
LOC: PAS 05:39 → SUR 3N 12:58 → ICU 2S 01-26 05:12 → CICU 2S 01-27 05:54 → SUR 3N 01-28 14:01
PROVIDERS: ADMIT Urology; ATTEND Urology
PROC: 0TB74ZZ Excision of Left Ureter, Percutaneous Endoscopic Approach (ICD-10-PCS; 2020-01-25)
PROC: 0GB24ZZ Excision of Left Adrenal Gland, Percutaneous Endoscopic Approach (ICD-10-PCS; 2020-01-25)
PROC: 0TT14ZZ Resection of Left Kidney, Percutaneous Endoscopic Approach (ICD-10-PCS; principal; 2020-01-25 07:20)
PROC: 0W3H0ZZ Control Bleeding in Retroperitoneum, Open Approach (ICD-10-PCS; 2020-01-26)
PROC: 30233K1 Transfusion of Nonautologous Frozen Plasma into Peripheral Vein, Percutaneous Approach (ICD-10-PCS; 2020-01-26)
PROC: 30233N1 Transfusion of Nonautologous Red Blood Cells into Peripheral Vein, Percutaneous Approach (ICD-10-PCS; 2020-01-26)
PROC: 30233R1 Transfusion of Nonautologous Platelets into Peripheral Vein, Percutaneous Approach (ICD-10-PCS; 2020-01-26)
PROC: 02HV33Z Insertion of Infusion Device into Superior Vena Cava, Percutaneous Approach (ICD-10-PCS; 2020-01-26)
PROC: B548ZZA Ultrasonography of Superior Vena Cava, Guidance (ICD-10-PCS; 2020-01-26)
DX: C65.2 Malignant neoplasm of left renal pelvis (principal); J96.00 Acute respiratory failure, unspecified whether with hypoxia or hypercapnia; S36.039A Unspecified laceration of spleen, initial encounter; N17.9 Acute kidney failure, unspecified; N99.820 Postprocedural hemorrhage of a genitourinary system organ or structure following a genitourinary system procedure; F17.210 Nicotine dependence, cigarettes, uncomplicated; I10 Essential (primary) hypertension; Z96.0 Presence of urogenital implants; I25.10 Atherosclerotic heart disease of native coronary artery without angina pectoris; N40.0 Benign prostatic hyperplasia without lower urinary tract symptoms; I95.9 Hypotension, unspecified; R00.0 Tachycardia, unspecified; X58.XXXA Exposure to other specified factors, initial encounter; E66.9 Obesity, unspecified; Z68.31 Body mass index [BMI] 31.0-31.9, adult; Z46.6 Encounter for fitting and adjustment of urinary device; Z79.899 Other long term (current) drug therapy; Y93.89 Activity, other specified; Y92.234 Operating room of hospital as the place of occurrence of the external cause; Y99.8 Other external cause status
CPT/HCPCS: Z7506; Z7508; 36415; 36430; 36600; 71045; 80053; 80202; 81001; 82570; 82803; 82948; 83735; 84100; 84540; 85018; 85025; 85027; 85610; 85730; 86885; 86900; 86901; 86920; 87040; 87070; 87081; 87088; 94002; 94640; 94760; 97110; 97116; 97161; 97530; A4215; A4618; A6258; A6402; A6449; A7000; C1758; C1769; C9113; G0378; J0131; J1100; J1170; J1644; J1815; J1885; J1940; J2001; J2175; J2250; J2270; J2405; J2543; J2704; J2710; J3010; J3370; J3411; J3490; J7030; J7040; J7060; J7120; P9016; P9035; P9059

== ENCOUNTER 2020-02-06 14:04 | Emergency (ER) | payer OTHER ==
[~2020-02-06] VITALS: Ht 180.3 cm; Wt 98.6 kg
[~2020-02-06 14:04] MED LIST changes: -DOCUMENT DATE & TIME OF BETA-BLOCKER PO ONE; -albuterol 2.5 MG/3 ML nebule NEB ONE; -ceFAZolin 2gm in dextrose, iso 50 ML IV ONE; -famotidine 20mg tablet PO ONE
[2020-02-06] MEDS ORDERED: proparacaine 0.5% ophthalmic drops 15ml EACHEYE ONE (14:45)
[2020-02-06] MEDS ORDERED: ERYT1OIN6 RIGHTEYE (16:20)
--- NOTE | 2020-02-06 16:42 | NUR ---
ASSISTING RN WITH PT CARE, IRRIGATED RT EYE WITH 1 LITER NS VIA SAGAR LENS, PT WARREN WELL,
[2020-02-06 17:08] VITALS: BP 147/94
== END 2020-02-06 16:55 | disposition home or self-care (01) ==
LOC: EEVIPCON 14:04 → ER 14:05
DX: S05.01XA Injury of conjunctiva and corneal abrasion without foreign body, right eye, initial encounter (principal); H57.11 Ocular pain, right eye; H53.8 Other visual disturbances; Z87.440 Personal history of urinary (tract) infections; Z85.9 Personal history of malignant neoplasm, unspecified; Z79.2 Long term (current) use of antibiotics; Z79.899 Other long term (current) drug therapy; X58.XXXA Exposure to other specified factors, initial encounter; Y93.89 Activity, other specified; Y92.89 Other specified places as the place of occurrence of the external cause; Y99.8 Other external cause status
CPT/HCPCS: 99283

== ENCOUNTER 2020-02-12 13:37 | Outpatient (CLI) | payer OTHER ==
[~2020-02-12 13:37] MED LIST changes: +ERYT1OIN6 RIGHTEYE
[2020-02-12 14:31] LABS: ALBUMIN 3.7 G/DL (3.4-5.0); ANION GAP 8 (8-16); BLOOD UREA NITROGEN 22 MG/DL (7-18); BUN/CREATININE RATIO 15.9 (5.4-32.0); CALCIUM 8.9 MG/DL (8.5-10.1); CHLORIDE 106 MMOL/L (99-107); CREATININE 1.38 MG/DL (0.60-1.10); GLUCOSE 103 MG/DL (70-104); POTASSIUM 4.5 MMOL/L (3.5-5.1); SODIUM 139 MMOL/L (135-145); TOTAL CARBON DIOXIDE 25.1 MMOL/L (24-32); eGFR 52 ML/MIN
== END 2020-02-12 23:59 | disposition home or self-care (01) ==
LOC: LAB 13:37
PROVIDERS: ATTEND Internal Medicine Cardiovascular Disease
DX: R06.02 Shortness of breath (principal)
CPT/HCPCS: 36415; 80048; 83880

== ENCOUNTER 2020-03-16 12:31 | Outpatient (CLI) | payer BC ==
[~2020-03-16 12:31] MED LIST changes: -ERYT1OIN6 RIGHTEYE
[2020-03-16 14:39] LABS: BASOPHILS # (AUTO) 0.1 X10'3 (0-0.2); BASOPHILS % (AUTO) 0.7 % (0-1); EOSINOPHILS # (AUTO) 0.1 X10'3 (0-0.9); HEMATOCRIT 38.9 % (42.0-52.0); HEMOGLOBIN 12.7 g/dl (14.0-17.9); LYMPHOCYTES # (AUTO) 2.2 X10'3 (1.1-4.8); MEAN CORPUSCULAR HEMOGLOBIN 29.1 PG (27.0-31.0); MEAN CORPUSCULAR HGB CONC 32.7 g/dL (33.0-36.5); MEAN CORPUSCULAR VOLUME 89.2 FL (78-98); MEAN PLATELET VOLUME 7.5 FL (7.4-10.4); MONOCYTES # (AUTO) 0.7 X10'3 (0-0.9); MONOCYTES % (AUTO) 9.9 % (2-12); NEUTROPHILS # (AUTO) 4.4 X10'3 (1.8-7.7); NEUTROPHILS % (AUTO) 58.4 % (42-75); PLATELET COUNT 332 X10'3 (140-440); RED BLOOD COUNT 4.36 X10'6 (4.70-6.10); RED CELL DISTRIBUTION WIDTH 13.9 % (11.5-14.5); WHITE BLOOD COUNT 7.5 X10'3 (4.5-11.0)
[2020-03-16 15:17] LABS: % IRON SATURATION 23 % (11-46); IRON 61 UG/DL (53-167); TOTAL IRON BINDING CAPACITY 269 UG/DL (259-388)
== END 2020-03-16 23:59 | disposition home or self-care (01) ==
LOC: VAS 12:31
PROVIDERS: ATTEND Family Medicine
DX: I70.201 Unspecified atherosclerosis of native arteries of extremities, right leg (principal); M79.605 Pain in left leg; R06.02 Shortness of breath
CPT/HCPCS: 36415; 71046; 83540; 83550; 85025; 93922; 93925

== ENCOUNTER 2020-03-31 15:28 | Outpatient (CLI) | payer BC ==
[2020-03-31 17:06] LABS: CREATININE 1.25 MG/DL (0.60-1.10); eGFR 59 ML/MIN
== END 2020-03-31 23:59 | disposition home or self-care (01) ==
LOC: LAB 15:28
PROVIDERS: ATTEND Radiology Vascular & Interventional Radiology
DX: R06.02 Shortness of breath (principal); C64.9 Malignant neoplasm of unspecified kidney, except renal pelvis
CPT/HCPCS: 36415; 82565

== ENCOUNTER 2020-04-04 08:02 | Day surgery (SDC) | payer BC ==
[~2020-04-04] VITALS: Ht 172.7 cm; Wt 97.7 kg
[2020-04-04] MEDS ORDERED: sodium bicarbonate (8.4%) inj. 150 ML in dextrose 5%-water 1,000 ML IV ONE (09:10)
[2020-04-04 09:13] VITALS: BP 153/91
[2020-04-04] MEDS ORDERED: iohexol 350MG/ML 100ml bottle IV ONE (09:49)
[2020-04-04] MEDS ORDERED: iohexol 350 MG/ML 50ML vial IV ONE (09:49)
[2020-04-04 12:53] VITALS: BP 156/90
[2020-04-04 13:53] VITALS: BP 143/91
[2020-04-04 14:53] VITALS: BP 152/84
[2020-04-04 15:53] VITALS: BP 140/89
[2020-04-04 16:53] VITALS: BP 158/97
== END 2020-04-04 17:25 | disposition home or self-care (01) ==
LOC: SSTAY O 08:02
PROVIDERS: ATTEND Radiology Vascular & Interventional Radiology
DX: M79.604 Pain in right leg (principal); M79.605 Pain in left leg; C64.9 Malignant neoplasm of unspecified kidney, except renal pelvis; I70.201 Unspecified atherosclerosis of native arteries of extremities, right leg
CPT/HCPCS: 75635; Q9967

== ENCOUNTER 2020-05-11 11:59 | Outpatient (CLI) | payer BC ==
[~2020-05-11 11:59] MED LIST changes: -ASCO-139 PO
== END 2020-05-11 23:59 | disposition home or self-care (01) ==
LOC: VAS 11:59
PROVIDERS: ATTEND Radiology Vascular & Interventional Radiology
DX: I73.9 Peripheral vascular disease, unspecified (principal)
CPT/HCPCS: 93922

== ENCOUNTER 2020-05-31 06:38 | Day surgery (SDC) | payer BC ==
[2020-05-31] VITALS (10 sets, daily range): BP systolic 137–192; BP diastolic 65–99
[~2020-05-31] VITALS: Ht 172.7 cm; Wt 99.6 kg
[2020-05-31] MEDS ORDERED: normal saline 1000ml 1,000 ML IV PRN (06:55)
[2020-05-31 07:36] LABS: BASOPHILS # (AUTO) 0.1 X10'3 (0-0.2); BASOPHILS % (AUTO) 0.5 % (0-1); EOSINOPHILS # (AUTO) 0.1 X10'3 (0-0.9); EOSINOPHILS % (AUTO) 1.3 % (0-6); HEMATOCRIT 37.5 % (42.0-52.0); HEMOGLOBIN 12.3 g/dl (14.0-17.9); LYMPHOCYTES # (AUTO) 1.5 X10'3 (1.1-4.8); LYMPHOCYTES % (AUTO) 13.6 % (21-51); MEAN CORPUSCULAR HEMOGLOBIN 29.4 PG (27.0-31.0); MEAN CORPUSCULAR HGB CONC 32.9 g/dL (33.0-36.5); MEAN CORPUSCULAR VOLUME 89.5 FL (78-98); MEAN PLATELET VOLUME 7.5 FL (7.4-10.4); MONOCYTES # (AUTO) 1.1 X10'3 (0-0.9); MONOCYTES % (AUTO) 9.8 % (2-12); NEUTROPHILS # (AUTO) 8.1 X10'3 (1.8-7.7); NEUTROPHILS % (AUTO) 74.8 % (42-75); PLATELET COUNT 278 X10'3 (140-440); RED BLOOD COUNT 4.19 X10'6 (4.70-6.10); RED CELL DISTRIBUTION WIDTH 14.8 % (11.5-14.5); WHITE BLOOD COUNT 10.9 X10'3 (4.5-11.0)
[2020-05-31 07:47] LABS: ALBUMIN 3.4 G/DL (3.4-5.0); ANION GAP 9 (8-16); BLOOD UREA NITROGEN 12 MG/DL (7-18); BUN/CREATININE RATIO 9.9 (5.4-32.0); CALCIUM 8.2 MG/DL (8.5-10.1); CHLORIDE 103 MMOL/L (99-107); CREATININE 1.21 MG/DL (0.60-1.10); GLUCOSE 91 MG/DL (70-104); POTASSIUM 4.5 MMOL/L (3.5-5.1); SODIUM 137 MMOL/L (135-145); TOTAL CARBON DIOXIDE 24.6 MMOL/L (24-32); eGFR 61 ML/MIN
[2020-05-31] MEDS ORDERED: FLU VACC QS2020-21(6MOS UP)/PF 60 MCG/0.5 ML SYRINGE IMVAC ONE (08:00)
[2020-05-31] MEDS ORDERED: iohexol 300 MG/1 ML 50ml polymer ONE (08:09)
[2020-05-31] MEDS ORDERED: LIDOcaine 1%/PF 5ML 10 MG/ML VIAL ONE (08:09)
[2020-05-31] MEDS ORDERED: heparin 1,000 UNITS/NS 500ml 500 ML ONE (08:09)
[2020-05-31] MEDS ORDERED: midazolam 2 mg/2 ml injection ONE ×3 (08:20→09:17)
[2020-05-31] MEDS ORDERED: fentaNYL/PF 50MCG/1 ML 2ML syringe ONE ×3 (08:21→09:17)
[2020-05-31] MEDS ORDERED: heparin 1,000unit/ml 10ml vial 10 ML ONE (09:25)
[2020-05-31] MEDS ORDERED: clopidogrel 300mg tablet PO ONE (10:00)
[2020-05-31] MEDS ORDERED: normal saline 1000ml 1,000 ML IV SCH (10:00)
== END 2020-05-31 14:05 | disposition home or self-care (01) ==
LOC: SSTAY O 06:38
PROVIDERS: ATTEND Radiology Vascular & Interventional Radiology
DX: I70.213 Atherosclerosis of native arteries of extremities with intermittent claudication, bilateral legs (principal); N40.0 Benign prostatic hyperplasia without lower urinary tract symptoms; Z87.440 Personal history of urinary (tract) infections; Z79.899 Other long term (current) drug therapy; Z20.828 Contact with and (suspected) exposure to other viral communicable diseases; Z23 Encounter for immunization
CPT/HCPCS: 36415; 37226; 75716; 75736; 80048; 85025; 85610; 87635; 90471; 99152; 99153; C1725; C1760; C1769; C1876; C1894; J1644; J2250; J3010; J7030; Q2039; Q9967

== ENCOUNTER 2020-09-16 07:50 | Outpatient (CLI) | payer BC ==
[~2020-09-16 07:50] MED LIST changes: -ATOR40TA PO; -METO-384 PO
== END 2020-09-16 23:59 | disposition home or self-care (01) ==
LOC: VAS 07:50
PROVIDERS: ATTEND Radiology Vascular & Interventional Radiology
DX: I70.213 Atherosclerosis of native arteries of extremities with intermittent claudication, bilateral legs (principal)
CPT/HCPCS: 93922; 93925

== ENCOUNTER 2021-04-03 08:43 | Outpatient (CLI) | payer BC | END 2021-04-03 23:59 | disposition home or self-care (01) | LOC: VAS 08:43 → EEVIPCON 09:00 → VAS 23:59 | PROVIDERS: ATTEND Family Medicine | DX: M17.0 Bilateral primary osteoarthritis of knee (principal); M16.11 Unilateral primary osteoarthritis, right hip; M25.751 Osteophyte, right hip; I10 Essential (primary) hypertension; Z87.891 Personal history of nicotine dependence | CPT/HCPCS: 73522; 73564; 93978 ==

== ENCOUNTER → 2021-06-19 | Outpatient (CLI) | payer BC | END | disposition home or self-care (01) | LOC: VAS 10:34 | PROVIDERS: ATTEND Radiology Vascular & Interventional Radiology | DX: M71.22 Synovial cyst of popliteal space [Baker], left knee (principal); M71.21 Synovial cyst of popliteal space [Baker], right knee; I70.203 Unspecified atherosclerosis of native arteries of extremities, bilateral legs | CPT/HCPCS: 93922; 93925 ==

== ENCOUNTER 2022-01-25 11:57 | Outpatient (CLI) | payer BC ==
[2022-01-25 12:39] LABS: BASOPHILS # (AUTO) 0.1 X10'3 (0-0.2); BASOPHILS % (AUTO) 0.6 % (0-1); EOSINOPHILS # (AUTO) 0.2 X10'3 (0-0.9); EOSINOPHILS % (AUTO) 1.6 % (0-6); HEMATOCRIT 45.1 % (42.0-52.0); HEMOGLOBIN 14.9 g/dl (14.0-17.9); LYMPHOCYTES # (AUTO) 1.4 X10'3 (1.1-4.8); LYMPHOCYTES % (AUTO) 14.2 % (21-51); MEAN CORPUSCULAR HEMOGLOBIN 30.2 PG (27.0-31.0); MEAN CORPUSCULAR HGB CONC 33.1 g/dL (33.0-36.5); MEAN CORPUSCULAR VOLUME 91.3 FL (78-98); MEAN PLATELET VOLUME 8.3 FL (7.4-10.4); MONOCYTES # (AUTO) 1.1 X10'3 (0-0.9); MONOCYTES % (AUTO) 11.5 % (2-12); NEUTROPHILS # (AUTO) 7.2 X10'3 (1.8-7.7); NEUTROPHILS % (AUTO) 72.1 % (42-75); PLATELET COUNT 285 X10'3 (140-440); RED BLOOD COUNT 4.94 X10'6 (4.70-6.10); RED CELL DISTRIBUTION WIDTH 14.4 % (11.5-14.5)
[2022-01-25 12:40] LABS: CLARITY,URINE CLEAR (Clear); COLOR,URINE YELLOW (Yellow); GLUCOSE, URINE NEGATIVE (Neg); KETONES,URINE NEGATIVE (Neg); LEUKOCYTE ESTERASE ,URINE MODERATE (Neg); NITRITES, URINE NEGATIVE (Neg); OCCULT BLOOD,URINE TRACE-INTACT (Neg); PH,URINE 6.5 (4.8-8.0); PROTEIN,URINE NEGATIVE (Neg); UROBILINOGEN,URINE 0.2 E.U/dL (0.2-1.0)
[2022-01-25 12:45] LABS: UA COLLECTION TYPE CLN CATCH MIDSTREAM
[2022-01-25 12:50] LABS: WBC,URINE 20-30 /HPF (0-4)
[2022-01-25 12:52] LABS: WBC CLUMPS,URINE FEW /HPF (NEGATIVE)
[2022-01-25 12:53] LABS: BACTERIA,URINE FEW /HPF (Neg)
[2022-01-25 12:55] LABS: SQUAMOUS EPITHELIAL CELL,UR FEW /LPF (FEW)
[2022-01-25 13:03] LABS: ALANINE AMINOTRANSFERASE 20 U/L (12-78); ALBUMIN 3.6 G/DL (3.4-5.0); ALBUMIN/GLOBULIN RATIO 0.8 (1.1-1.5); ALKALINE PHOSPHATASE 55 IU/L (46-116); ANION GAP 13 (8-16); ASPARTATE AMINO TRANSFERASE 18 U/L (10-37); BILIRUBIN,TOTAL 0.3 MG/DL (0.1-1.0); BLOOD UREA NITROGEN 10 MG/DL (7-18); BUN/CREATININE RATIO 9.3 (5.4-32.0); CHLORIDE 100 MMOL/L (99-107); CHOL/HDL RATIO 2.4 (0.00-4.99); CHOLESTEROL 135 MG/DL (0-200); CREATININE 1.08 MG/DL (0.60-1.10); GLUCOSE 93 MG/DL (70-104); HDL CHOLESTEROL 57 MG/DL (35-60); LDL CHOLESTEROL 64 MG/DL (50-100); POTASSIUM 4.4 MMOL/L (3.5-5.1); SODIUM 136 MMOL/L (135-145); TOTAL CARBON DIOXIDE 23.5 MMOL/L (24-32); TOTAL PROTEIN 8.2 G/DL (6.4-8.2); TRIGLYCERIDES 71 MG/DL (20-135); eGFR 69 ML/MIN
== END 2022-01-25 23:59 | disposition home or self-care (01) ==
LOC: LAB 11:57
PROVIDERS: ATTEND Family Medicine
DX: Z00.01 Encounter for general adult medical examination with abnormal findings (principal)
CPT/HCPCS: 36415; 80053; 80061; 81001; 84439; 84443; 85025

== ENCOUNTER 2022-01-29 08:16 | Outpatient (CLI) | payer BC | END 2022-01-29 23:59 | disposition home or self-care (01) | LOC: VAS 08:16 | PROVIDERS: ATTEND Family Medicine | DX: I70.291 Other atherosclerosis of native arteries of extremities, right leg (principal); Z95.820 Peripheral vascular angioplasty status with implants and grafts | CPT/HCPCS: 93922; 93925 ==

== ENCOUNTER 2022-01-29 09:43 | Emergency (ER) | payer BC ==
[~2022-01-29] VITALS: Ht 170.2 cm; Wt 95.0 kg
[2022-01-29 10:14] LABS: BASOPHILS # (AUTO) 0.1 X10'3 (0-0.2); BASOPHILS % (AUTO) 1.2 % (0-1); EOSINOPHILS # (AUTO) 0.1 X10'3 (0-0.9); EOSINOPHILS % (AUTO) 1.2 % (0-6); HEMATOCRIT 41.8 % (42.0-52.0); HEMOGLOBIN 13.8 g/dl (14.0-17.9); LYMPHOCYTES # (AUTO) 1.5 X10'3 (1.1-4.8); LYMPHOCYTES % (AUTO) 20.3 % (21-51); MEAN CORPUSCULAR HEMOGLOBIN 29.9 PG (27.0-31.0); MEAN CORPUSCULAR HGB CONC 32.9 g/dL (33.0-36.5); MEAN CORPUSCULAR VOLUME 90.8 FL (78-98); MEAN PLATELET VOLUME 7.7 FL (7.4-10.4); MONOCYTES # (AUTO) 0.8 X10'3 (0-0.9); MONOCYTES % (AUTO) 10.7 % (2-12); NEUTROPHILS # (AUTO) 4.9 X10'3 (1.8-7.7); NEUTROPHILS % (AUTO) 66.6 % (42-75); PLATELET COUNT 292 X10'3 (140-440); RED CELL DISTRIBUTION WIDTH 14.1 % (11.5-14.5); WHITE BLOOD COUNT 7.3 X10'3 (4.5-11.0)
[2022-01-29 10:26] LABS: APTT 29 SECONDS (22-32)
[2022-01-29 10:28] LABS: ALANINE AMINOTRANSFERASE 18 U/L (12-78); ALBUMIN 3.3 G/DL (3.4-5.0); ALBUMIN/GLOBULIN RATIO 0.8 (1.1-1.5); ALKALINE PHOSPHATASE 53 IU/L (46-116); ANION GAP 9 (8-16); ASPARTATE AMINO TRANSFERASE 18 U/L (10-37); BILIRUBIN,TOTAL 0.4 MG/DL (0.1-1.0); BLOOD UREA NITROGEN 12 MG/DL (7-18); BUN/CREATININE RATIO 11.9 (5.4-32.0); CALCIUM 8.6 MG/DL (8.5-10.1); CHLORIDE 102 MMOL/L (99-107); CREATININE 1.01 MG/DL (0.60-1.10); GLUCOSE 101 MG/DL (70-104); POTASSIUM 4.6 MMOL/L (3.5-5.1); SODIUM 135 MMOL/L (135-145); TOTAL CARBON DIOXIDE 23.9 MMOL/L (24-32); TOTAL PROTEIN 7.6 G/DL (6.4-8.2); eGFR 75 ML/MIN
[2022-01-29 11:32] VITALS: BP 139/85
== END 2022-01-29 11:33 | disposition home or self-care (01) ==
LOC: EEVIPCON 09:44 → ER 09:44
DX: I70.201 Unspecified atherosclerosis of native arteries of extremities, right leg (principal); Z20.822 Contact with and (suspected) exposure to COVID-19; J02.9 Acute pharyngitis, unspecified; R05.9 Cough, unspecified
CPT/HCPCS: 36415; 80053; 85025; 85610; 85730; 86885; 86900; 86901; 87635; 93005; 99284; C9803

== ENCOUNTER 2022-02-02 05:59 | Day surgery (SDC) | payer BC ==
[~2022-02-02] VITALS: Ht 170.2 cm; Wt 94.6 kg
[2022-02-02] VITALS (11 sets, daily range): BP systolic 116–163; BP diastolic 66–106
[2022-02-02] MEDS ORDERED: normal saline 1000ml 1,000 ML IV PRN (06:25)
[2022-02-02] MEDS ORDERED: CLOP75TA34 PO (06:25)
[2022-02-02 06:41] LABS: BASOPHILS # (AUTO) 0.1 X10'3 (0-0.2); BASOPHILS % (AUTO) 0.8 % (0-1); EOSINOPHILS # (AUTO) 0.2 X10'3 (0-0.9); HEMATOCRIT 44.4 % (42.0-52.0); HEMOGLOBIN 15.3 g/dl (14.0-17.9); LYMPHOCYTES % (AUTO) 23.7 % (21-51); MEAN CORPUSCULAR HGB CONC 34.5 g/dL (33.0-36.5); MEAN CORPUSCULAR VOLUME 89.9 FL (78-98); MEAN PLATELET VOLUME 7.4 FL (7.4-10.4); MONOCYTES # (AUTO) 0.9 X10'3 (0-0.9); MONOCYTES % (AUTO) 10.2 % (2-12); NEUTROPHILS # (AUTO) 5.4 X10'3 (1.8-7.7); NEUTROPHILS % (AUTO) 63.3 % (42-75); PLATELET COUNT 387 X10'3 (140-440); RED BLOOD COUNT 4.94 X10'6 (4.70-6.10); WHITE BLOOD COUNT 8.5 X10'3 (4.5-11.0)
[2022-02-02 06:56] LABS: ALBUMIN 3.5 G/DL (3.4-5.0); ANION GAP 10 (8-16); BLOOD UREA NITROGEN 17 MG/DL (7-18); CHLORIDE 103 MMOL/L (99-107); CREATININE 1.21 MG/DL (0.60-1.10); GLUCOSE 95 MG/DL (70-104); POTASSIUM 4.5 MMOL/L (3.5-5.1); SODIUM 137 MMOL/L (135-145); TOTAL CARBON DIOXIDE 24.3 MMOL/L (24-32); eGFR 61 ML/MIN
[2022-02-02] MEDS ORDERED: fentaNYL/PF 50MCG/1 ML 2ML syringe ONE (07:45)
[2022-02-02] MEDS ORDERED: LIDOcaine 1%/PF 5ML 10 MG/ML VIAL ONE ×2 (07:45→08:58)
[2022-02-02] MEDS ORDERED: midazolam 1 mg/ML 2ml injection ONE ×2 (07:45→08:56)
[2022-02-02] MEDS ORDERED: iohexol 300 MG/1 ML 50ml polymer ONE ×2 (07:46→09:01)
[2022-02-02] MEDS ORDERED: heparin 1,000 UNITS/NS 500ml 500 ML ONE (07:55)
[2022-02-02] MEDS ORDERED: diphenhydrAMINE 50 mg/ml inj ONE (09:01)
[2022-02-02] MEDS ORDERED: heparin 1,000unit/ml 10ml vial 10 ML ONE (09:08)
[2022-02-02] MEDS ORDERED: normal saline 1000ml 1,000 ML IV SCH (10:15)
== END 2022-02-02 14:55 | disposition home or self-care (01) ==
LOC: SSTAY O 05:59
PROVIDERS: ATTEND Radiology Vascular & Interventional Radiology
DX: I70.211 Atherosclerosis of native arteries of extremities with intermittent claudication, right leg (principal); Z79.01 Long term (current) use of anticoagulants; Z79.899 Other long term (current) drug therapy; Z87.891 Personal history of nicotine dependence; Z72.89 Other problems related to lifestyle
CPT/HCPCS: 36415; 37225; 75710; 80048; 85025; 99152; 99153; C1757; C1760; C1769; C1887; C1894; C2623; J1200; J1644; J2250; J3010; J3490; J7030; Q9967; A4620; A6213

== ENCOUNTER 2022-05-25 12:50 | Outpatient (CLI) | payer BC ==
[~2022-05-25 12:50] MED LIST changes: +CLOP75TA34 PO; -MULT-1085 PO
== END 2022-05-25 23:59 | disposition home or self-care (01) ==
LOC: LAB 12:50
PROVIDERS: ATTEND Urology
DX: N42.9 Disorder of prostate, unspecified (principal)
CPT/HCPCS: 84153; 84154

== ENCOUNTER 2022-10-17 12:54 | Outpatient (CLI) | payer BC ==
[2022-10-17 13:36] LABS: BASOPHILS # (AUTO) 0.1 X10'3 (0-0.2); EOSINOPHILS # (AUTO) 0.1 X10'3 (0-0.9); EOSINOPHILS % (AUTO) 1.4 % (0-6); HEMATOCRIT 39.8 % (42.0-52.0); HEMOGLOBIN 13.2 g/dl (14.0-17.9); LYMPHOCYTES # (AUTO) 1.9 X10'3 (1.1-4.8); LYMPHOCYTES % (AUTO) 27.9 % (21-51); MEAN CORPUSCULAR HEMOGLOBIN 30.9 PG (27.0-31.0); MEAN CORPUSCULAR HGB CONC 33.2 g/dL (33.0-36.5); MEAN PLATELET VOLUME 7.5 FL (7.4-10.4); MONOCYTES # (AUTO) 0.6 X10'3 (0-0.9); MONOCYTES % (AUTO) 8.3 % (2-12); NEUTROPHILS # (AUTO) 4.2 X10'3 (1.8-7.7); NEUTROPHILS % (AUTO) 61.4 % (42-75); PLATELET COUNT 308 X10'3 (140-440); RED BLOOD COUNT 4.28 X10'6 (4.70-6.10); RED CELL DISTRIBUTION WIDTH 13.8 % (11.5-14.5); WHITE BLOOD COUNT 6.9 X10'3 (4.5-11.0)
[2022-10-17 13:48] LABS: CLARITY,URINE CLOUDY (Clear); COLOR,URINE YELLOW (Yellow); GLUCOSE, URINE NEGATIVE (Neg); KETONES,URINE NEGATIVE (Neg); LEUKOCYTE ESTERASE ,URINE MODERATE (Neg); NITRITES, URINE NEGATIVE (Neg); OCCULT BLOOD,URINE TRACE-INTACT (Neg); PROTEIN,URINE NEGATIVE (Neg); UROBILINOGEN,URINE 0.2 E.U/dL (0.2-1.0)
[2022-10-17 13:57] LABS: HEMOGLOBIN A1C 5.2 % (4.5-6.2)
[2022-10-17 13:59] LABS: ALANINE AMINOTRANSFERASE 18 U/L (12-78); ALBUMIN 3.7 G/DL (3.4-5.0); ALBUMIN/GLOBULIN RATIO 0.9 (1.1-1.5); ALKALINE PHOSPHATASE 48 IU/L (46-116); ANION GAP 10 (8-16); ASPARTATE AMINO TRANSFERASE 19 U/L (10-37); BILIRUBIN,TOTAL 0.5 MG/DL (0.1-1.0); BLOOD UREA NITROGEN 17 MG/DL (7-18); BUN/CREATININE RATIO 14.9 (5.4-32.0); CALCIUM 9.2 MG/DL (8.5-10.1); CHLORIDE 103 MMOL/L (99-107); CHOL/HDL RATIO 2.3 (0.00-4.99); CHOLESTEROL 151 MG/DL (0-200); CREATININE 1.14 MG/DL (0.60-1.10); GLUCOSE 140 MG/DL (70-104); HDL CHOLESTEROL 67 MG/DL (35-60); LDL CHOLESTEROL 74 MG/DL (50-100); POTASSIUM 4.1 MMOL/L (3.5-5.1); SODIUM 137 MMOL/L (135-145); TOTAL CARBON DIOXIDE 24.4 MMOL/L (24-32); TOTAL PROTEIN 7.6 G/DL (6.4-8.2); TRIGLYCERIDES 50 MG/DL (20-135); eGFR 65 ML/MIN
[2022-10-17 14:04] LABS: UA COLLECTION TYPE VOIDED
[2022-10-17 14:05] LABS: WBC,URINE TNTC /HPF (0-4)
[2022-10-17 14:06] LABS: BACTERIA,URINE 2+ /HPF (Neg); MUCUS STRANDS NONE SEEN /LPF (Neg); RBC,URINE 0-2 /HPF (0-2); SQUAMOUS EPITHELIAL CELL,UR FEW /LPF (FEW)
== END 2022-10-17 23:59 | disposition home or self-care (01) ==
LOC: LAB 12:54
PROVIDERS: ATTEND Family Medicine
DX: Z00.01 Encounter for general adult medical examination with abnormal findings (principal)
CPT/HCPCS: 36415; 80053; 80061; 81001; 83036; 84153; 84402; 84403; 84439; 84443; 85025; 87088

== ENCOUNTER 2022-11-19 10:07 | Day surgery (SDC) | payer BC ==
[~2022-11-19] VITALS: Ht 177.8 cm; Wt 100.0 kg
[2022-11-19 10:15] VITALS: BP 152/94
[2022-11-19] MEDS ORDERED: MIDAZolam 1 MG/ML 5ML VIAL ONE (11:36)
[2022-11-19] MEDS ORDERED: fentaNYL/PF 50MCG/1 ML 2ML syringe ONE (11:36)
[2022-11-19 12:00] VITALS: BP 143/88
[2022-11-19 12:10] VITALS: BP 146/76
[2022-11-19 12:20] VITALS: BP 141/82
[2022-11-19 12:30] VITALS: BP 156/94
== END 2022-11-19 12:46 | disposition home or self-care (01) ==
LOC: GI LAB 10:07
PROVIDERS: ATTEND Internal Medicine Gastroenterology
DX: Z12.11 Encounter for screening for malignant neoplasm of colon (principal); D12.2 Benign neoplasm of ascending colon; D12.5 Benign neoplasm of sigmoid colon; K57.30 Diverticulosis of large intestine without perforation or abscess without bleeding; K64.8 Other hemorrhoids; F17.210 Nicotine dependence, cigarettes, uncomplicated; I10 Essential (primary) hypertension; Z86.718 Personal history of other venous thrombosis and embolism; Z79.01 Long term (current) use of anticoagulants; Z85.528 Personal history of other malignant neoplasm of kidney; Z86.010 Personal history of colon polyps; Z79.899 Other long term (current) drug therapy
CPT/HCPCS: 45380; 45385; 99152; 99153; C1889; J2250; J3010; J7030; Z7512; A4620

== ENCOUNTER 2023-05-14 12:43 | Outpatient (CLI) | payer BC ==
[~2023-05-14 12:43] MED LIST changes: +LOSA-415 PO; -LOSA25TA96 PO
[2023-05-14 13:13] LABS: BILIRUBIN,URINE NEGATIVE (Neg); CLARITY,URINE CLOUDY (Clear); COLOR,URINE YELLOW (Yellow); GLUCOSE, URINE NEGATIVE (Neg); KETONES,URINE NEGATIVE (Neg); LEUKOCYTE ESTERASE ,URINE LARGE (Neg); NITRITES, URINE NEGATIVE (Neg); OCCULT BLOOD,URINE SMALL (Neg); PROTEIN,URINE NEGATIVE (Neg); UROBILINOGEN,URINE 0.2 E.U/dL (0.2-1.0)
[2023-05-14 13:40] LABS: ALANINE AMINOTRANSFERASE 25 U/L (12-78); ALBUMIN 3.9 G/DL (3.4-5.0); ALBUMIN/GLOBULIN RATIO 1.1 (1.1-1.5); ALKALINE PHOSPHATASE 49 IU/L (46-116); ANION GAP 9 (8-16); ASPARTATE AMINO TRANSFERASE 20 U/L (10-37); BILIRUBIN,TOTAL 0.4 MG/DL (0.1-1.0); BLOOD UREA NITROGEN 20 MG/DL (7-18); BUN/CREATININE RATIO 15.7 (10.0-20.0); CALCIUM 8.9 MG/DL (8.5-10.1); CHLORIDE 104 MMOL/L (99-107); CHOL/HDL RATIO 2.6 (0.00-4.99); CHOLESTEROL 157 MG/DL (0-200); CREATININE 1.27 MG/DL (0.60-1.10); FREE T4 (FREE THYROXINE) 0.83 NG/DL (0.73-1.40); GLUCOSE 151 MG/DL (70-104); HDL CHOLESTEROL 60 MG/DL (35-60); LDL CHOLESTEROL 78 MG/DL (50-100); POTASSIUM 4.5 MMOL/L (3.5-5.1); SODIUM 139 MMOL/L (135-145); TOTAL CARBON DIOXIDE 25.6 MMOL/L (24-32); TOTAL PROTEIN 7.6 G/DL (6.4-8.2); TRIGLYCERIDES 72 MG/DL (20-135); eGFR 57 ML/MIN
[2023-05-14 13:48] LABS: UA COLLECTION TYPE CLN CATCH MIDSTREAM
[2023-05-14 13:49] LABS: WBC,URINE 50-100 /HPF (0-4)
[2023-05-14 13:50] LABS: BACTERIA,URINE 3+ /HPF (Neg); SQUAMOUS EPITHELIAL CELL,UR FEW /LPF (FEW)
[2023-05-14 14:05] LABS: BASOPHILS # (AUTO) 0.1 X10'3 (0-0.2); BASOPHILS % (AUTO) 1.1 % (0-1); EOSINOPHILS # (AUTO) 0.2 X10'3 (0-0.9); HEMATOCRIT 43.3 % (42.0-52.0); HEMOGLOBIN 14.3 g/dl (14.0-17.9); LYMPHOCYTES % (AUTO) 23.7 % (21-51); MEAN CORPUSCULAR HEMOGLOBIN 30.7 PG (27.0-31.0); MEAN CORPUSCULAR HGB CONC 33.1 g/dL (33.0-36.5); MEAN CORPUSCULAR VOLUME 92.9 FL (78-98); MONOCYTES # (AUTO) 0.8 X10'3 (0-0.9); MONOCYTES % (AUTO) 9.5 % (2-12); NEUTROPHILS # (AUTO) 5.3 X10'3 (1.8-7.7); NEUTROPHILS % (AUTO) 63.7 % (42-75); PLATELET COUNT 298 X10'3 (140-440); RED BLOOD COUNT 4.66 X10'6 (4.70-6.10); RED CELL DISTRIBUTION WIDTH 13.9 % (11.5-14.5); WHITE BLOOD COUNT 8.4 X10'3 (4.5-11.0)
[2023-05-14 14:33] LABS: HEMOGLOBIN A1C 5.8 % (4.5-6.2)
== END 2023-05-14 23:59 | disposition home or self-care (01) ==
LOC: LAB 12:43
PROVIDERS: ATTEND Family Medicine
DX: N40.1 Benign prostatic hyperplasia with lower urinary tract symptoms (principal); I10 Essential (primary) hypertension; N52.9 Male erectile dysfunction, unspecified
CPT/HCPCS: 36415; 80053; 80061; 81001; 82043; 82570; 83036; 84153; 84402; 84403; 84439; 84443; 85025

== ENCOUNTER → 2024-01-17 | Outpatient (CLI) | payer BC | END | disposition home or self-care (01) | LOC: VAS 12:07 | PROVIDERS: ATTEND Family Medicine | DX: I70.203 Unspecified atherosclerosis of native arteries of extremities, bilateral legs (principal); I70.8 Atherosclerosis of other arteries | CPT/HCPCS: 93922; 93925 ==

== ENCOUNTER 2024-03-26 10:52 | Outpatient (CLI) | payer BC ==
[2024-03-26 11:37] LABS: ALANINE AMINOTRANSFERASE 25 U/L (12-78); ALBUMIN 3.8 G/DL (3.4-5.0); ALKALINE PHOSPHATASE 58 IU/L (46-116); ANION GAP 8 (8-16); ASPARTATE AMINO TRANSFERASE 19 U/L (10-37); BILIRUBIN,TOTAL 0.5 MG/DL (0.1-1.0); BLOOD UREA NITROGEN 17 MG/DL (7-18); CHLORIDE 102 MMOL/L (99-107); CHOL/HDL RATIO 2.8 (0.00-4.99); CHOLESTEROL 169 MG/DL (0-200); CREATININE 1.21 MG/DL (0.60-1.10); GLUCOSE 96 MG/DL (70-104); HDL CHOLESTEROL 61 MG/DL (35-60); LDL CHOLESTEROL 94 MG/DL (50-100); POTASSIUM 4.6 MMOL/L (3.5-5.1); SODIUM 137 MMOL/L (135-145); TOTAL CARBON DIOXIDE 27.1 MMOL/L (24-32); TOTAL PROTEIN 7.7 G/DL (6.4-8.2); TRIGLYCERIDES 79 MG/DL (20-135); eGFR 60 ML/MIN
== END 2024-03-26 23:59 | disposition home or self-care (01) ==
LOC: LAB 10:52 → RAD 23:59
PROVIDERS: ATTEND Internal Medicine Interventional Cardiology
DX: I34.81 Nonrheumatic mitral (valve) annulus calcification (principal); F17.290 Nicotine dependence, other tobacco product, uncomplicated; I70.211 Atherosclerosis of native arteries of extremities with intermittent claudication, right leg; I10 Essential (primary) hypertension; R06.09 Other forms of dyspnea
CPT/HCPCS: 36415; 80053; 80061; 93306

== ENCOUNTER 2024-04-02 09:15 | Outpatient (CLI) | payer BC ==
[~2024-04-02] VITALS: Ht 177.8 cm; Wt 96.2 kg
[2024-04-02] VITALS (7 sets, daily range): BP systolic 115–158; BP diastolic 57–77; PULSE 75–100; RESP 18; O2SAT 99
[2024-04-02] MEDS: regadenoson 0.4mg/5ml syringe IV ONE (10:46)
== END 2024-04-02 23:59 | disposition home or self-care (01) ==
LOC: RAD 09:15
PROVIDERS: ATTEND Student in an Organized Health Care Education/Training Program
DX: I25.10 Atherosclerotic heart disease of native coronary artery without angina pectoris (principal); R06.02 Shortness of breath; I10 Essential (primary) hypertension
CPT/HCPCS: 93017; J2785

== ENCOUNTER 2024-04-02 11:23 | Outpatient (CLI) | payer BC | END 2024-04-02 23:59 | disposition home or self-care (01) | LOC: RAD 11:23 | PROVIDERS: ATTEND Family Medicine | DX: M16.0 Bilateral primary osteoarthritis of hip (principal); M25.571 Pain in right ankle and joints of right foot; M54.50 Low back pain, unspecified; M47.817 Spondylosis without myelopathy or radiculopathy, lumbosacral region; M48.07 Spinal stenosis, lumbosacral region | CPT/HCPCS: 72110; 73502; 73610 ==

== ENCOUNTER 2024-04-13 14:50 | Outpatient (CLI) | payer BC ==
[2024-04-13 15:23] LABS: BASOPHILS # (AUTO) 0.1 X10'3 (0-0.2); BASOPHILS % (AUTO) 0.9 % (0-1); EOSINOPHILS # (AUTO) 0.3 X10'3 (0-0.9); HEMATOCRIT 43.1 % (42.0-52.0); HEMOGLOBIN 14.3 g/dl (14.0-17.9); LYMPHOCYTES # (AUTO) 1.8 X10'3 (1.1-4.8); LYMPHOCYTES % (AUTO) 21.1 % (21-51); MEAN CORPUSCULAR HEMOGLOBIN 30.9 PG (27.0-31.0); MEAN CORPUSCULAR HGB CONC 33.1 g/dL (33.0-36.5); MEAN CORPUSCULAR VOLUME 93.2 FL (78-98); MEAN PLATELET VOLUME 7.2 FL (7.4-10.4); MONOCYTES # (AUTO) 0.8 X10'3 (0-0.9); MONOCYTES % (AUTO) 9.2 % (2-12); NEUTROPHILS # (AUTO) 5.8 X10'3 (1.8-7.7); NEUTROPHILS % (AUTO) 65.8 % (42-75); PLATELET COUNT 277 X10'3 (140-440); RED BLOOD COUNT 4.62 X10'6 (4.70-6.10); RED CELL DISTRIBUTION WIDTH 14.3 % (11.5-14.5); WHITE BLOOD COUNT 8.7 X10'3 (4.5-11.0)
[2024-04-13 15:31] LABS: APTT 32 SECONDS (22-32); PROTHROMBIN TIME 10.6 SECONDS (9.0-12.0)
[2024-04-13 15:43] LABS: ANION GAP 7 (8-16); BLOOD UREA NITROGEN 16 MG/DL (7-18); BUN/CREATININE RATIO 13.1 (10.0-20.0); CHLORIDE 98 MMOL/L (99-107); CREATININE 1.22 MG/DL (0.60-1.10); GLUCOSE 95 MG/DL (70-104); POTASSIUM 5.4 MMOL/L (3.5-5.1); SODIUM 131 MMOL/L (135-145); eGFR 60 ML/MIN
== END 2024-04-13 23:59 | disposition home or self-care (01) ==
LOC: RAD 14:50
PROVIDERS: ATTEND Internal Medicine Interventional Cardiology
DX: Z01.810 Encounter for preprocedural cardiovascular examination (principal); I70.211 Atherosclerosis of native arteries of extremities with intermittent claudication, right leg; I10 Essential (primary) hypertension
CPT/HCPCS: 36415; 80048; 85025; 85610; 85730

== ENCOUNTER 2024-05-25 11:04 | Outpatient (CLI) | payer BC | END 2024-05-25 23:59 | disposition home or self-care (01) | LOC: RAD 11:04 | PROVIDERS: ATTEND Family Medicine | DX: Z12.2 Encounter for screening for malignant neoplasm of respiratory organs (principal); F17.210 Nicotine dependence, cigarettes, uncomplicated | CPT/HCPCS: 71271 ==

== ENCOUNTER 2024-09-07 10:46 | Outpatient (CLI) | payer BC, MEDICARE ==
[2024-08-27 13:36] LABS: ALANINE AMINOTRANSFERASE 22 U/L (12-78); ALBUMIN 3.9 G/DL (3.4-5.0); ALBUMIN/GLOBULIN RATIO 0.9 (1.1-1.5); ALKALINE PHOSPHATASE 61 IU/L (46-116); ANION GAP 8 (8-16); ASPARTATE AMINO TRANSFERASE 21 U/L (10-37); BILIRUBIN,TOTAL 0.4 MG/DL (0.1-1.0); BLOOD UREA NITROGEN 26 MG/DL (7-18); BUN/CREATININE RATIO 18.3 (10.0-20.0); CALCIUM 9.3 MG/DL (8.5-10.1); CHLORIDE 104 MMOL/L (99-107); CREATININE 1.42 MG/DL (0.60-1.10); GLUCOSE 121 MG/DL (70-104); POTASSIUM 3.9 MMOL/L (3.5-5.1); SODIUM 137 MMOL/L (135-145); TOTAL PROTEIN 8.1 G/DL (6.4-8.2); eGFR 50 ML/MIN
[2024-09-07] MEDS ORDERED: iohexol 350MG/ML 100ml bottle IV ONE (10:51)
[2024-09-07] MEDS ORDERED: iohexol 350 MG/ML 50ML vial IV ONE (10:51)
== END 2024-09-07 23:59 | disposition home or self-care (01) ==
LOC: RAD 10:46
PROVIDERS: ATTEND Family Medicine
DX: I70.203 Unspecified atherosclerosis of native arteries of extremities, bilateral legs (principal); I72.3 Aneurysm of iliac artery; I70.8 Atherosclerosis of other arteries; I10 Essential (primary) hypertension; N40.0 Benign prostatic hyperplasia without lower urinary tract symptoms; K40.90 Unilateral inguinal hernia, without obstruction or gangrene, not specified as recurrent
CPT/HCPCS: 36415; 73706; 80053; Q9967

== ENCOUNTER 2024-12-15 08:54 | Outpatient (CLI) | payer BC, MEDICARE ==
[~2024-12-15] VITALS: Ht 177.8 cm; Wt 96.3 kg
[~2024-12-15 08:54] MED LIST changes: -FLO0.4C PO; +TAMS-55 PO
[2024-12-15] MEDS ORDERED: aminophylline 500mg/20ml vial IV ONE (10:05)
[2024-12-15 10:21] VITALS: BP 170/91; PULSE 68; RESP 16; O2SAT 98
[2024-12-15] MEDS: regadenoson 0.4mg/5ml syringe IV ONE (10:42)
[2024-12-15 10:43] VITALS: BP 165/85; PULSE 87; RESP 16; O2SAT 98
[2024-12-15 10:44] VITALS: BP 150/88; PULSE 89; RESP 16; O2SAT 100
[2024-12-15 10:45] VITALS: BP 163/85; PULSE 83; RESP 16; O2SAT 99
[2024-12-15 10:46] VITALS: BP 159/90; PULSE 85; RESP 16; O2SAT 98
[2024-12-15 10:47] VITALS: BP 167/85; PULSE 90; RESP 16; O2SAT 97
== END 2024-12-15 23:59 | disposition home or self-care (01) ==
LOC: RAD 08:54
PROVIDERS: ATTEND Internal Medicine Cardiovascular Disease
DX: I08.8 Other rheumatic multiple valve diseases (principal); I25.10 Atherosclerotic heart disease of native coronary artery without angina pectoris; R06.02 Shortness of breath
CPT/HCPCS: 78452; 93017; 93306; A9500; J0280; J2785

== ENCOUNTER 2025-02-09 08:14 | Emergency (ER) | payer BC, MEDICARE ==
[~2025-02-09] VITALS: Ht 177.8 cm; Wt 92.2 kg
--- NOTE | 2025-02-09 08:45 | ELECTROCARDIOGRAPH REPORT ---
[facility] Test Date: 2025-02-09 Test Time: 08:40:18 Pat Name: RAÚL GRIFFITH Department: [facility]- Patient ID: [id number] Room: Gender: M Ballistics Tester: : 1960 Requested By: BRENNAN ROMAN Order Number: [id number] Reading MD: Measurements Intervals [place] Rate: 83 P: 64 FL: 185 QRS: -49 QRSD: 89 T: 47 QT: 342 QTc: 402 Interpretive Statements Sinus rhythm Consider left atrial enlargement Left anterior fascicular block Anterior infarct, old Baseline wander in lead(s) III,aVL,aVF,V6 Please click the below link to view image of tracing.
[2025-02-09 08:48] LABS: BASOPHILS # (AUTO) 0.1 X10'3 (0-0.2); BASOPHILS % (AUTO) 0.8 % (0-1); EOSINOPHILS # (AUTO) 0.2 X10'3 (0-0.9); EOSINOPHILS % (AUTO) 2.8 % (0-6); HEMATOCRIT 42.8 % (42.0-52.0); HEMOGLOBIN 14.6 g/dl (14.0-17.9); LYMPHOCYTES # (AUTO) 1.4 X10'3 (1.1-4.8); LYMPHOCYTES % (AUTO) 17.4 % (21-51); MEAN CORPUSCULAR HEMOGLOBIN 31.6 PG (27.0-31.0); MEAN CORPUSCULAR VOLUME 92.9 FL (78-98); MEAN PLATELET VOLUME 7.8 FL (7.4-10.4); MONOCYTES # (AUTO) 0.6 X10'3 (0-0.9); MONOCYTES % (AUTO) 7.9 % (2-12); NEUTROPHILS # (AUTO) 5.8 X10'3 (1.8-7.7); NEUTROPHILS % (AUTO) 71.1 % (42-75); PLATELET COUNT 263 X10'3 (140-440); RED CELL DISTRIBUTION WIDTH 14.2 % (11.5-14.5); WHITE BLOOD COUNT 8.1 X10'3 (4.5-11.0)
--- NOTE | 2025-02-09 09:01 | RADIOLOGY REPORT ---
DI CHEST,SINGLE VIEW, HISTORY: CP COMPARISON: None None TECHNICAL DATA: 1 view of the chest was obtained. FINDINGS: Lines and tubes: None Cardiomediastinal silhouette: normal Pulmonary vasculature: normal Lung expansion: normal Lung airspace: Possible left lower lobe pulmonary nodule vs nipple shadow. Lung interstitium: normal Pleura: normal Pneumothorax: no Bones: Unremarkable Other: no IMPRESSION: No acute intrathoracic abnormality. Possible left lower lobe pulmonary nodule vs nipple shadow.
[2025-02-09 09:05] LABS: ALANINE AMINOTRANSFERASE 35 U/L (12-78); ALBUMIN 3.8 G/DL (3.4-5.0); ALBUMIN/GLOBULIN RATIO 1.1 (1.1-1.5); ALKALINE PHOSPHATASE 60 IU/L (46-116); ANION GAP 12 (8-16); ASPARTATE AMINO TRANSFERASE 28 U/L (10-37); BILIRUBIN,TOTAL 0.3 MG/DL (0.1-1.0); BLOOD UREA NITROGEN 23 MG/DL (7-18); BUN/CREATININE RATIO 15.1 (10.0-20.0); CALCIUM 8.5 MG/DL (8.5-10.1); CHLORIDE 105 MMOL/L (99-107); CREATININE 1.52 MG/DL (0.60-1.10); GLUCOSE 155 MG/DL (70-104); POTASSIUM 4.2 MMOL/L (3.5-5.1); SODIUM 137 MMOL/L (135-145); TOTAL CARBON DIOXIDE 20.2 MMOL/L (24-32); TOTAL PROTEIN 7.4 G/DL (6.4-8.2); eCRCL 49 ML/MIN; eGFR 46 ML/MIN
[2025-02-09] MEDS ORDERED: iohexol 350MG/ML 100ml bottle IV ONE (09:46)
[2025-02-09] MEDS ORDERED: iohexol 350 MG/ML 50ML vial IV ONE (10:35)
--- NOTE | 2025-02-09 12:19 | RADIOLOGY REPORT ---
EXAM: CT CTA LOWER EXTREMITY RT Reason for study/Clinical History: RLE claudication, history of RLE stent COMPARISON STUDY: CT CTA LOWER EXTREMITY on DOS: 09/07/24 CTA right LOWER EXTREMITY RUNOFF WITH CONTRAST DATED 02/09/2025 10:49 AM TECHNIQUE: 3D angiographic acquisition of lower extremities was obtained during the intravenous admi nistration of 120 cc omni 350 without immediate adverse effect. 3D post processing, including maximum intensity projection, was performed on an independent workstation and images were reviewed on a [facility] PACS. Radiation dose : Radiation Dose Information: CT Dose: CTDI volume is 27 mGy. Dose-length product is 872 mGy*cm FINDINGS: Vascular: Right Common and external iliac arteries are patent without evidence hemodynamically stenosis. Penet rating atherosclerotic ulcer versus focal aneurysmal dilation of the right common iliac artery measur ing up to 25 mm. Moderate to high-grade stenosis of the origin of the right internal iliac artery. Ri ght common femoral, profunda femoral, superficial femoral and popliteal arteries are patent. Patent stent in the proximal right superficial femoral artery. Moderate to high-grade stenosis distal right superficial femoral artery. Moderate stenosis in the proximal right popliteal artery. Right tibioperoneal Trunk, peroneal, posterior tibial (HAND THERMAL CUTTER) arteries are patent. Right anterior tibi al artery is occluded. There is normal tapering right peroneal arteries at the level of the ankle joyce nt] Right HAND THERMAL CUTTER crosses the ankle joints and supply corresponding foot via normal plantar arteries. Other findings: No evidence of venous opacification during arterial phase to suggest fistula or AV malformation. Pros tatomegaly. Fat containing right inguinal hernia. Musculoskeletal: No aggressive focal bony lesions, acute fractures or dislocation. IMPRESSION: 1. Diffuse moderate to advanced atherosclerotic disease. Penetrating atherosclerotic ulcer versus foc al aneurysmal dilation of the right common iliac artery measuring up to 25 mm. Patent stent in the pr oximal right superficial femoral artery. Moderate to high-grade stenosis in the distal right superfic ial femoral artery. Moderate stenosis in the proximal right popliteal artery. 2-vessel runoff to th e right foot via the posterior tibial and peroneal arteries. Prostatomegaly. Fat containing right in guinal hernia. END IMPRESSION: HS:Y
--- NOTE | 2025-02-09 12:39 | VASCULAR REPORT ---
EXAM: [facility] ANKLE/BRACHIAL INDEX CLINICAL HISTORY: Bilateral lower extremity pain Peripheral vascular disease COMPARISON: [facility] JAMES on DOS: 01/17/24, JAMES on DOS: 01/29/22, JAMES on DOS: 06/19/21 TECHNIQUE: Bilateral systolic ankle and brachial pressures are obtained, with ankle pulse volume waveforms and i ndices. FINDINGS: Pressures: Right Left Brachial 142 mmHg IV mmHg PT 118 mmHg 102 mmHg DP n/a mmHg 90 mmHg JAMES: Right Left 0.83 .71 Pulse volume waveforms: Monophasic in the right dorsalis pedis, left posterior tibial and left dorsalis pedis IMPRESSION: Moderate disease at rest, bilateral. Monophasic arterial waveforms are present suggestive of underlying peripheral arterial disease. Unable to calculate JAMES in the right distal anterior tibial artery / dorsalis pedis artery due to dim inished flow. 1.0-1.4: normal 0.91-0.99 borderline 0.9: abnormal (i.e. PAD) 0.4-0.9: [id number] PAD <0.4: suggestive of severe PAD
--- NOTE | 2025-02-09 14:34 | Physician Documentation ---
History of Present Illness ~ Chief Complaint: Leg Pain Stated Complaint: LEG PAIN Time Seen by MD: 08:22 Primary Medical Doctor: Xochilt Mode of Arrival: POV, Ambulatory HPI 64 year old male with RLE pain today. 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 His claudication symptoms have become increasingly painful, however. He was overwhelmed with pain today prior to arrival in our ER. He denies chest pain, shortness of breath, LOC, n/v/d. His pain is severe, worse on exertion, better on rest, but intermittently bothers him even at rest. Tetanus witin 5 years: Yes Medication Reconciliation Allergies: Coded Allergies: No Known Allergies (Unverified , 02/09/25) Scheduled Clopidogrel Bisulfate (Clopidogrel), 1 TAB PO DAILY, (Reported) Losartan Potassium* (Cozaar*), 50 MG PO DAILY, (Reported) Tamsulosin Hcl* (Flomax*), 1 CAP PO BID, (Reported) Past Medical History Past Medical History: BPH, UTI, *CANCER* Past Surgical History: no surgical history Smoking Status: Current every day smoker Alcohol Use: None Drug Use: none Lives with: Family Lives In: Home Occupation: employed Review of Systems All Other Systems at this time: Reviewed and Negative Physical Exam Vital Signs: Temperature: 98.1, Source: Temporal, Heart Rate: 82, Respiratory Rate: 16, BP: 140/86, Pulse Oximetry: 97, Weight: 92.200 Oxygen Flow Rate: 0 Physical Exam HEENT: PERRL, moist oral mucosa, EOMI Pulmonary: No respiratory distress MSK: no deformity; RLE and LLE warm, pale, cap refill >3 seconds, will barely palpable pulses bilaterally Skin: w/d/i, no rash Neuro: alert, nonfocal Psych: normal affect Progress Results/Orders Results/Orders Orders - BRENNAN ROMAN MD Chest,Single View (02/09/25 08:25) Monitor (02/09/25 08:25) Saline Lock (02/09/25 08:25) Oxygen (02/09/25 08:25) Vl Sofy (02/09/25 10:26) Page Hospitalist (02/09/25 13:26) Completed Orders - BRENNAN ROMAN MD Chest,Single View (02/09/25 08:25) Cbc/Diff (02/09/25 08:25) PBNP (02/09/25 08:25) Electrocardiogram (02/09/25 08:25) Hs Troponin I W Calculations (02/09/25 08:25) Hs Troponin I W Calculations (02/09/25 10:25) Hs Troponin I W Calculations (02/09/25 11:25) CMP (02/09/25 08:22) Iohexol 350mg/Ml 100ml (Omnipaque 350mg/ (02/09/25 09:46) Vl Sofy (02/09/25 10:26) Iohexol 350mg/Ml 50ml Inj (Omnipaque 350 (02/09/25 10:35) Vital Signs 02/09/25 02/09/25 02/09/25 02/09/25 08:17 08:30 09:07 11:41 Temp 98.1 98.1 Pulse 100 88 91 Resp 18 12 16 B/P (MAP) 138/80 136/85 (102) 134/83 (100) Pulse Ox 97 98 98 O2 Flow Rate 0 0 02/09/25 02/09/25 12:36 13:47 Temp 98.1 98.1 Pulse 80 82 Resp 16 16 B/P (MAP) 132/89 (103) 140/86 (104) Pulse Ox 96 97 O2 Flow Rate 0 0 Laboratory Tests Test 02/09/25 08:41 02/09/25 10:21 02/09/25 11:16 White Blood Count 8.1 Red Blood Count 4.60 L Hemoglobin 14.6 Hematocrit 42.8 Mean Corpuscular Volume 92.9 Mean Corpuscular Hemoglobin 31.6 H Mean Corpuscular Hemoglobin Concent 34.0 Red Cell Distribution Width 14.2 Platelet Count 263 Mean Platelet Volume 7.8 Neutrophils (%) (Auto) 71.1 Lymphocytes (%) (Auto) 17.4 L Monocytes (%) (Auto) 7.9 Eosinophils (%) (Auto) 2.8 Basophils (%) (Auto) 0.8 Neutrophils # (Auto) 5.8 Lymphocytes # (Auto) 1.4 Monocytes # (Auto) 0.6 Eosinophils # (Auto) 0.2 Basophils # (Auto) 0.1 CBC Comment Sodium Level 137 Potassium Level 4.2 Chloride Level 105 Carbon Dioxide Level 20.2 L Anion Gap 12 Blood Urea Nitrogen 23 H Creatinine 1.52 H Estimated GFR/1.73 m2 46 BUN/Creatinine Ratio 15.1 Glucose Level 155 H Calcium Level 8.5 Total Bilirubin 0.3 Aspartate Amino Transf (AST/SGOT) 28 Alanine Aminotransferase (ALT/SGPT) 35 Alkaline Phosphatase 60 Troponin I High Sensitivity 8 6 7 Pro-B-Type Natriuretic Peptide 44 Total Protein 7.4 Albumin 3.8 Globulin 3.6 Albumin/Globulin Ratio 1.1 Chemistry Comments Troponin I High Sens Percent Delta 25 16 Troponin I Hi Sens Absolute Change -2 1 Medical Decision Making Findings 64 year old male with RLE > LLE claudication type symptoms in this patient with known peripheral vascular disease. He reportedly has followup with a specialist at [place] but this is not until April. There is some thought that he may need restenting or special popliteal stenting. SOFY's were LLE approximately .76 and RLE approximately 0.85, and CT angiogram demonstrated severe SFA stenosis and other findings. Spoke with Dr. Tesfaye who recommended evaluation by Dr. Hutchinson, interventional radiologist, who will be here later this week. I set the patient up with an outpatient order for CT angiogram and possible intervention and he will go home. Return precautions discussed. Additional Comment Ddx = claudication, DVT, acute on chronic limb ischemia, cellulitis, osteomyelitis, peripheral neuropathy Departure Disposition: HOME / SELF CARE / HOMELESS Impression: Primary Impression: Peripheral vascular disease Additional Impression: Claudication Additional Instructions: Please follow up with Dr. Hutchinson as referred. Referrals: NO PRIMARY CARE PROVIDER (PCP) MARCELA HUTCHINSON MD Education Educated: Patient Educated regarding: diagnosis, treatment, prognosis, need for follow up Signature Scribe Signature: . Attestation: . BRENNAN ROMAN MD Feb 09, 2025 14:34
[2025-02-09 14:36] LABS: PRO BRAIN NATRIURETIC PEPTIDE 44 PG/ML (0-125)
[2025-02-09 15:27] VITALS: TEMP 98.1
[2025-02-09 16:26] VITALS: BP 135/95; PULSE 90; RESP 16; O2SAT 98
[2025-02-11] MEDS ORDERED: RIVA2.5T PO (11:29)
[2025-02-11] MEDS ORDERED: FINA5TAB11 PO (11:31)
[2025-02-11] MEDS ORDERED: ATOR40TA72 PO (11:31)
== END 2025-02-09 16:29 | disposition home or self-care (01) ==
LOC: ER 08:15
DX: I73.9 Peripheral vascular disease, unspecified (principal); F17.200 Nicotine dependence, unspecified, uncomplicated; I25.2 Old myocardial infarction; Z95.5 Presence of coronary angioplasty implant and graft; Z79.899 Other long term (current) drug therapy
CPT/HCPCS: 36415; 71045; 73706; 80053; 83880; 84484; 85025; 93005; 93922; 99285; Q9967

== ENCOUNTER → 2025-02-11 | Day surgery (SDC) | payer BC, MEDICARE ==
[~2025-02-11] MED LIST changes: +ATOR40TA72 PO; +FINA5TAB11 PO; +RIVA2.5T PO
[2025-02-11 11:59] LABS: BASOPHILS # (AUTO) 0.1 X10'3 (0-0.2); BASOPHILS % (AUTO) 0.7 % (0-1); EOSINOPHILS # (AUTO) 0.3 X10'3 (0-0.9); EOSINOPHILS % (AUTO) 2.7 % (0-6); HEMATOCRIT 42.1 % (42.0-52.0); HEMOGLOBIN 14.3 g/dl (14.0-17.9); LYMPHOCYTES # (AUTO) 1.9 X10'3 (1.1-4.8); LYMPHOCYTES % (AUTO) 19.5 % (21-51); MEAN CORPUSCULAR HEMOGLOBIN 31.4 PG (27.0-31.0); MEAN CORPUSCULAR VOLUME 92.3 FL (78-98); MEAN PLATELET VOLUME 7.8 FL (7.4-10.4); MONOCYTES # (AUTO) 0.9 X10'3 (0-0.9); MONOCYTES % (AUTO) 8.8 % (2-12); NEUTROPHILS # (AUTO) 6.7 X10'3 (1.8-7.7); NEUTROPHILS % (AUTO) 68.3 % (42-75); PLATELET COUNT 280 X10'3 (140-440); RED BLOOD COUNT 4.56 X10'6 (4.70-6.10); RED CELL DISTRIBUTION WIDTH 14.1 % (11.5-14.5); WHITE BLOOD COUNT 9.7 X10'3 (4.5-11.0)
[2025-02-11 12:15] LABS: PROTHROMBIN TIME 9.6 SECONDS (9.0-12.0)
[2025-02-11 12:19] LABS: INR 0.9 INR
[2025-02-11 12:23] LABS: ALANINE AMINOTRANSFERASE 40 U/L (12-78); ALBUMIN 3.7 G/DL (3.4-5.0); ALBUMIN/GLOBULIN RATIO 1.1 (1.1-1.5); ALKALINE PHOSPHATASE 62 IU/L (46-116); ANION GAP 9 (8-16); ASPARTATE AMINO TRANSFERASE 31 U/L (10-37); BILIRUBIN,TOTAL 0.2 MG/DL (0.1-1.0); BLOOD UREA NITROGEN 27 MG/DL (7-18); BUN/CREATININE RATIO 21.8 (10.0-20.0); CALCIUM 8.7 MG/DL (8.5-10.1); CHLORIDE 106 MMOL/L (99-107); CREATININE 1.24 MG/DL (0.60-1.10); GLUCOSE 115 MG/DL (70-104); POTASSIUM 4.3 MMOL/L (3.5-5.1); SODIUM 138 MMOL/L (135-145); TOTAL CARBON DIOXIDE 22.7 MMOL/L (24-32); TOTAL PROTEIN 7.2 G/DL (6.4-8.2); eGFR 58 ML/MIN
--- NOTE | 2025-02-11 12:46 | PROGRESS NOTE ---
Progress Note - Angio Providers to CC ~ Angio Progress Note: Brief discussion with patient who has a specific stent acceptable to cross the knee joint in mind from his research. I mentioned several types of these stents with we do not stock normally and that the fung was for him to inquire at a tertiary center but also to begin his smoking cessation program sophie. He had a prescription for Chantix and I encouraged him to start this sophie. He has an appointment at [place] in April and currently his right foot is not threatened. MARCELA COTA MD Feb 11, 2025 12:46
== END | disposition home or self-care (01) ==
LOC: SSTAY O 11:04
DX: I73.9 Peripheral vascular disease, unspecified (principal); Z53.8 Procedure and treatment not carried out for other reasons; Z79.899 Other long term (current) drug therapy
CPT/HCPCS: 36415; 80053; 85025; 85610; J7030